=== PATIENT | female | born 1985 | race Caucasian/White ===

== ENCOUNTER 2017-07-20 17:01 | Inpatient (IN) | payer BC ==
[2017-07-20] MEDS ORDERED: Lidocaine 1% 50 ML MDV INJECT PRN (17:28)
[2017-07-20] MEDS ORDERED: Misoprostol 200 MCG Tab PO PRN (17:28)
[2017-07-20] MEDS ORDERED: Nalbuphine 10 MG/1 ML Vial IVPUSH PRN (17:28)
[2017-07-20] MEDS ORDERED: Terbutaline 1 MG/ML SDV SUBCUT PRN (17:28)
[2017-07-20] MEDS ORDERED: Methylergonovine 0.2 MG/1 ML Amp IM PRN (17:28)
[2017-07-20] MEDS ORDERED: Water For Irrigation,Sterile 1,000 ML Container IRR PRN (17:28)
[2017-07-20] MEDS ORDERED: Sodium Chloride 0.9% 2.5 ML Syringe FLUSH PRN (17:28)
[2017-07-20] MEDS ORDERED: Sodium Chloride 0.9% 10 ML Syringe FLUSH PRN (17:28)
[2017-07-20] MEDS ORDERED: Carboprost Tromethamine 250 MCG/1 ML Amp IM PRN (17:28)
[2017-07-20] MEDS ORDERED: Oxytocin/Lactated Ringers 30 UNIT/500 ML BAG IV SCH ×2 (17:30)
[2017-07-20] MEDS ORDERED: Misoprostol 25 MCG (1/4 of 100 MCG) Tab VAG SCH (17:30)
[2017-07-20] MEDS: Lactated Ringers 1,000 ML IV SCH (17:55)
[2017-07-20] MEDS: Misoprostol 25 MCG (1/4 of 100 MCG) Tab VAG PRN (22:11)
[2017-07-21] MEDS: Misoprostol 25 MCG (1/4 of 100 MCG) Tab VAG PRN ×2 (02:32→06:38)
[2017-07-21] MEDS: Butorphanol 1 MG/ML SDV IVPUSH PRN ×3 (11:03→14:38)
[2017-07-21 14:53] LABS: CHLORIDE,CL 104 mmol/L (98-110); SODIUM,NA 137 mmol/L (136-146)
[2017-07-21] MEDS ORDERED: Ropivacaine 0.2% 2 MG/ML 20 ML SDV ONE (16:48)
[2017-07-21] MEDS: Lactated Ringers 1,000 ML IV SCH ×5 (16:52→22:57)
--- NOTE | 2017-07-21 17:27 | PCM.PREANE ---
Preanesthetic Assessment - Anesthesia/Transfusion/Family Hx Anesthesia History: Prior Anesthesia Without Reaction Family History of Anesthesia Reaction: No Transfusion History: No Prior Transfusion(s) - Review of Systems Other: Reports: None - Physical Assessment Height: 5 ft 5 in Weight: 81.647 kg ASA Class: 2 Mental Status: Alert & Oriented x3 Airway Class: Mallampati = 1 Dentition: Reports: Normal Dentition Thyro-Mental Finger Breadths: 3 Mouth Opening Finger Breadths: 3 ROM/Head Extension: Full - Lab Values: Laboratory Last Values WBC 17.14 K/uL (4.0-11.0) H 07/21/17 14:15 RBC 4.32 M/uL (4.30-5.90) 07/21/17 14:15 Hgb 12.6 g/dL (12.0-16.0) 07/21/17 14:15 Hct 36.5 % (36.0-46.0) 07/21/17 14:15 MCV 84.5 fL (80.0-98.0) 07/21/17 14:15 MCH 29.2 pg (27.0-32.0) 07/21/17 14:15 MCHC 34.5 g/dL (31.0-37.0) 07/21/17 14:15 RDW Std Deviation 41.6 fl (28.0-62.0) 07/21/17 14:15 RDW Coeff of Yamilet 14 % (11.0-15.0) 07/21/17 14:15 Plt Count 157 K/uL (150-400) 07/21/17 14:15 MPV 9.50 fL (7.40-12.00) 07/21/17 14:15 Nucleated RBC % 0.0 /100WBC 07/21/17 14:15 Nucleated RBCs # 0 K/uL 07/21/17 14:15 Sodium 137 mmol/L (136-146) 07/21/17 14:15 Potassium 3.8 mmol/L (3.5-5.1) 07/21/17 14:15 Chloride 104 mmol/L (98-110) 07/21/17 14:15 Carbon Dioxide 22 mmol/L (21-31) 07/21/17 14:15 BUN 8 mg/dL (6.0-23.0) 07/21/17 14:15 Creatinine 0.8 mg/dL (0.6-1.5) 07/21/17 14:15 Est Cr Clr Drug Dosing 93.37 mL/min 07/21/17 14:15 Estimated GFR (MDRD) > 60.0 ml/min 07/21/17 14:15 Glucose 69 mg/dL (60-110) 07/21/17 14:15 Calcium 9.4 mg/dL (8.8-10.8) 07/21/17 14:15 Total Bilirubin 0.4 mg/dL (0.1-1.5) 07/21/17 14:15 AST 19 IU/L (5-40) 07/21/17 14:15 ALT 15 IU/L (8-54) 07/21/17 14:15 Alkaline Phosphatase 225 (40-150) H 07/21/17 14:15 Total Protein 6.8 g/dL (6.0-8.0) 07/21/17 14:15 Albumin 3.6 g/dL (3.5-5.0) 07/21/17 14:15 Globulin 3.2 g/dL (2.0-3.5) 07/21/17 14:15 Albumin/Globulin Ratio 1.1 (1.3-2.8) L 07/21/17 14:15 Blood Type AB POSITIVE 07/20/17 17:41 Antibody Screen NEGATIVE 07/20/17 17:41 - Allergies Allergies/Adverse Reactions: Allergies Allergy/AdvReac Type Severity Reaction Status Date / Time No Known Allergies Allergy Verified 07/20/17 17:27 - Blood Blood Available: Yes Product(s) Available: PRBC - Acknowledgements Anesthesia Type Planned: Epidural Pt an Appropriate Candidate for the Planned Anesthesia: Yes Alternatives and Risks of Anesthesia Discussed w Pt/Guardian: Yes Pt/Guardian Understands and Agrees with Anesthesia Plan: Yes PreAnesthesia Questionnaire - Past Surgical History HEENT Surgical History: Reports: Oral Surgery - SUBSTANCE USE Smoking Status *Q: Never Smoker Second Hand Smoke Exposure: No Recreational Drug Use History: No - CURRENT (IN HOUSE) MEDS Current Meds: Current Medications Butorphanol Tartrate (Stadol) 1 mg IVPUSH Q1H PRN PRN Reason: Pain Last Admin: 07/21/17 14:38 Dose: 1 mg Carboprost Tromethamine (Hemabate Ds) 250 mcg IM ASDIRECTED PRN PRN Reason: Post Hemorrhage Lactated Ringer's (Ringers, Lactated) 1,000 mls @ 150 mls/hr IV ASDIRECTED INGRIS Last Admin: 07/21/17 16:52 Dose: 999 mls/hr Oxytocin/Lactated Ringer's (Pitocin In Lr 30 Units/500 Ml) 30 unit in 500 mls @ 2 mls/hr IV TITRATE INGRIS; 2 MUNITS/MIN PRN Reason: Protocol Last Admin: 07/21/17 14:46 Dose: 2 munits/min, 2 mls/hr Lidocaine HCl (Xylocaine 1%) 50 ml INJECT .ONCE PRN PRN Reason: Laceration repair Methylergonovine Maleate (Methergine) 0.2 mg IM ASDIRECTED PRN PRN Reason: Post Hemorrhage Misoprostol (Cytotec) 200 mcg PO .ONCE PRN PRN Reason: Post Hemorrhage Misoprostol (Cytotec) 25 mcg VAG .ONCE INGRIS Last Admin: 07/20/17 17:55 Dose: 25 mcg Misoprostol (Cytotec) 25 mcg VAG Q4H PRN PRN Reason: Cervical Ripening Last Admin: 07/21/17 06:38 Dose: 25 mcg Nalbuphine HCl (Nubain) 10 mg IVPUSH Q1H PRN PRN Reason: Pain (severe 7-10) Sodium Chloride (Saline Flush) 10 ml FLUSH ASDIRECTED PRN PRN Reason: Keep Vein Open Sodium Chloride (Saline Flush) 2.5 ml FLUSH ASDIRECTED PRN PRN Reason: Keep Vein Open Sterile Water (Sterile Water For Irrigation) 1,000 ml IRR ASDIRECTED PRN PRN Reason: delivery Terbutaline Sulfate (Brethine) 0.25 mg SUBCUT ASDIRECTED PRN PRN Reason: Tacysystole Discontinued Medications Oxytocin/Lactated Ringer's (Pitocin In Lr 30 Units/500 Ml) 30 unit in 500 mls @ 250 mls/hr IV TITRATE INGRIS PRN Reason: 250 MUNITS/MIN Stop: 07/20/17 19:29 Ropivacaine/Fentanyl/NS (Fentanyl 2 Mcg-Ropiv 0.2%-Ns) Confirm Administered Dose 100 mls @ as directed .ROUTE .[facility] ONE Stop: 07/21/17 16:49 Ropivacaine (Naropin 0.2%) Confirm Administered Dose 20 ml .ROUTE .[facility] ONE Stop: 07/21/17 16:49
[2017-07-21] MEDS ORDERED: ePHEDrine 50 MG/ML SDV ONE (17:48)
[2017-07-21] MEDS ORDERED: Ropivacaine HCl/PF 100 ML ONE (23:49)
[2017-07-21] MEDS ORDERED: Bupivacaine 0.5% 10 ML SDV ONE (23:50)
[2017-07-22] MEDS ORDERED: Bupivacaine 0.5% 10 ML SDV ONE ×2 (03:14→11:45)
[2017-07-22] MEDS: Lactated Ringers 1,000 ML IV SCH ×4 (03:33→11:44)
[2017-07-22] MEDS ORDERED: Ropivacaine HCl/PF 100 ML ONE (03:47)
[2017-07-22] MEDS ORDERED: Phenylephrine/Normal Saline 100 MCG/ML 10 ML Syringe ONE (11:34)
[2017-07-22] MEDS ORDERED: ePHEDrine 50 MG/ML SDV ONE (11:34)
[2017-07-22] MEDS ORDERED: Oxytocin 10 Units/1 ML SDV ONE (11:36)
[2017-07-22] MEDS ORDERED: Ondansetron 4 MG/2 ML SDV ONE (11:37)
[2017-07-22] MEDS ORDERED: Citric Acid/Sodium Citrate Solution 30 ML Cup PO ONE (11:46)
[2017-07-22] MEDS ORDERED: ceFAZolin 1 GM Vial ONE (11:49)
[2017-07-22] MEDS ORDERED: Water For Injection, Sterile 20 ML ONE (11:50)
[2017-07-22] MEDS ORDERED: Azithromycin 500 MG in Sodium Chloride 0.9% 250 ML IV ONE (12:00)
[2017-07-22] MEDS ORDERED: ceFAZolin 2 GM in Premix Bag 1 BAG IV ONE (12:00)
[2017-07-22] MEDS ORDERED: Octyl 2-Cyanoacrylate 1 Tube ONE (12:38)
[2017-07-22] MEDS ORDERED: Morphine PF 10 MG/10 ML SDV ONE (12:39)
--- NOTE | 2017-07-22 12:58 | PCM.OPNOTE ---
- General Post-Op/Procedure Note Date of Surgery/Procedure: 07/22/17 Operative Procedure(s): primary low transverse . Findings: Normal pelvis, liveborn male 810 weight 2460 grams, shoulder cord, PAT Pre Op Diagnosis: 39 1/7 weeks IUGR Post-Op Diagnosis: Same Anesthesia Technique: Epidural Primary Surgeon: Ynes Fishman Anesthesia Provider: Arvind Espana Conditioner Tumbler: Jose Christianson Pathology: placenta to pathology Fluid Replacement, Intraop: 600 Output, Urine Amount: 150 EBL in mLs: 500 Complications: None Known Condition: Good Free Text/Narrative:: Intake & Output 07/21/17 07/22/17 07/22/17 22:59 06:59 14:59 Intake Total 3000 Balance 3000
[2017-07-22] MEDS ORDERED: Methylergonovine 0.2 MG/1 ML Amp IM PRN (12:59)
[2017-07-22] MEDS ORDERED: Bisacodyl 10 MG Supp RECTAL PRN (12:59)
[2017-07-22] MEDS ORDERED: diphenhydrAMINE 50 MG/ML SDV IVPUSH PRN (12:59)
[2017-07-22] MEDS ORDERED: Lanolin 100% Cream 7 GM Tube TOP PRN (12:59)
[2017-07-22] MEDS ORDERED: Ondansetron 4 MG/2 ML SDV IV PRN (12:59)
[2017-07-22] MEDS ORDERED: Lactated Ringers 1,000 ML IV SCH (13:00)
--- NOTE | 2017-07-22 13:04 | PCM.SN ---
- Free Text/Narrative Note: Patient had been discussed with Sam Alberto yesterday with epidural placement and effects. Now for per Dr. Fishman for failure of tolerance by baby to labor. epidural was used for dosing and had been providing great analgesia since placement/replacement during the early AM. Plan discussed and carried out.
[2017-07-22] MEDS ORDERED: Nalbuphine 10 MG/1 ML Vial IVPUSH PRN (13:05)
[2017-07-22] MEDS ORDERED: Naloxone 0.4 MG/ML Syringe IVPUSH PRN (13:05)
[2017-07-22] MEDS: Ketorolac 30 MG/ML SDV IVPUSH SCH ×2 (13:13→19:05)
--- NOTE | 2017-07-22 13:27 | PCM.POSTAN ---
POST ANESTHESIA ASSESSMENT - MENTAL STATUS Mental Status: Alert, Oriented - VITAL SIGNS Pulse Rate: 71 SaO2: 99 Resp Rate: 20 Blood Pressure: 108/69 Temperature: 36.2 F - RESPIRATORY Respiratory Status: Respiratory Rate WNL, Airway Patent, O2 Saturation Stable - CARDIOVASCULAR CV Status: Pulse Rate WNL, Blood Pressure Stable - GASTROINTESTINAL GI Status: No Symptoms - PAIN Pain Score: 0 - POST OP HYDRATION Hydration Status: Adequate & Stable - OBSERVATIONS Free Text/Narrative:: Pt comfortable and stable at end of PACU course. Will be discharged from PACU to OB under the care of Dr. Fishman.
--- NOTE | 2017-07-22 14:07 | OR ---
SURGEON: Ynes Fishman M.D. DATE OF PROCEDURE: 07/20/2017 PREOPERATIVE DIAGNOSIS: Intrauterine growth restriction, intolerance to labor. POSTOPERATIVE DIAGNOSIS: Intrauterine growth restriction, intolerance to labor. PROCEDURE: Cytotec and Pitocin induction of labor with primary low transverse section. ANESTHESIA: Epidural. ESTIMATED BLOOD LOSS: 500 mL. FLUIDS: 600 mL crystalloid. Urine output 150 mL. FINDINGS: Live-born male, score 8 and 10, weighing 2460 g. Normal-appearing placenta. There was no nuchal cord or shoulder cord was noted. The fetus was in the left occiput anterior position. COMPLICATIONS: None known. DISPOSITION: Stable to recovery. BRIEF HISTORY: This is a 31-year-old female. She is G1, P0. She was seen in the clinic at 38 weeks' gestation and was noted to be measuring significantly small. Ultrasound was obtained and compared to an ultrasound obtained 3 weeks previously which showed minimal growth with the abdominal circumference less than the 3rd percentile suggestive of IUGR. Therefore at 39 weeks, I recommended proceeding with induction of labor and Crao did agree with this plan. Due to unfavorable cervix with a Conley score initially of 1, she received multiple doses of Cytotec. With this she dilated to 1 cm, 50%. I was able to place a catheter through the cervix with the balloon at the internal and external os. This was very effective. She had spontaneous rupture of membranes during this time with expulsion of the catheter. Following this she was 3 cm dilated. She continued to have irregular contractions with some decelerations, therefore no further Cytotec was utilized and she was allowed to progress naturally over the following 4 hours. However contractions resolved. Therefore Pitocin was initiated. Intrauterine pressure catheter was placed and with the Pitocin she had normal heart tones up until it reached 8 milliunits per minute. There were short episodes where she had reached above 200 [place] units with contractions, but the majority of the time they were less than 200 and a significant amount of time less than 80 as the Pitocin had to be started and stopped multiple times due to decelerations. She had received an initial epidural with test dose which shortly resulted in complete numbness of her left leg as well as hypotension, therefore that catheter was removed, a higher catheter was placed. This did not result in significant pain control and therefore a 3rd catheter was placed again in the lower position and with this she had excellent analgesia. Her blood pressures were stable and heart tones were as anticipated except when contractions became adequate and then she had recurrent prolonged decelerations. She did not progress over a 6-hour time. She remained 5 cm, 90%, -2 station over 6-hour time. Although we were unable to produce adequate contractions during this time, I recommended proceeding to a delivery due to intolerance of labor with risks discussed including bleeding, infection, injury to bowel, bladder, blood vessels, ureter or other organs, risk of thromboembolic event, risk of anesthesia. Understanding all of these risks, she does desire to proceed. DESCRIPTION OF PROCEDURE: With the patient in left tilt position, under adequate epidural analgesia, the abdomen was prepped with chlorhexidine and draped in usual fashion for abdominal surgery. An appropriate time-out was held. SCDs were in place. A Walker catheter had been placed and she received 500 mg of azithromycin as well as 2 g of Ancef IV. After the documentation of adequate analgesia, a transverse curvilinear incision was made 2 cm cephalad from the pubic symphysis and carried through the subcutaneous tissue to the fascia which was scored transversely in the midline. The fascial incision was extended using curved [place] scissors and the fascia was elevated from the underlying rectus muscle and using sharp and blunt dissection. A finger was used to separate the rectus muscle and entered the peritoneal cavity and this incision was extended using blunt dissection. The Jose O retractor was placed into the abdominal cavity and there was excellent visualization. A bladder flap was developed over the lower uterine segment. A transverse curvilinear incision was made over the lower uterine segment with a scalpel. A finger was used to enter the amniotic cavity. Clear fluid was noted and the incision was extended bluntly. The head was delivered via the uterine incision without difficulty with subsequent delivery of the 's shoulders and body. The infant was bulb suctioned by nose and mouth. Cord was clamped x2 and cut and the infant was handed to Dr. Hui who was in attendance at delivery. The infant was a liveborn male, score 8 and 10 weighing 2460 g. Cord blood was collected for cord ABGs as well as routine cord blood sampling. Pitocin was initiated after delivery of the . The placenta was removed by manual extraction. The uterus was sav well. The uterine incision was closed with a running lock suture of 0 Polysorb after the endometrial cavity had been cleaned with a dry laparotomy tape. A 2nd imbricating layer was placed using 0 Polysorb. The tubes and ovaries were inspected. Appeared normal. A wet laparotomy tape was used to clean the pericolic gutters and posterior cul-de-sac and the uterine incision was again inspected. It appeared hemostatic. Therefore, the Jose O retractor was removed. A final inspection of the uterus incision revealed a midline area of moderate to small bleeding, therefore a [id number] suture was placed and the incision was again inspected. It was completely hemostatic. Therefore, the rectus muscle and peritoneum were loosely approximated in the midline using a running mattress suture. The posterior aspect of the fascia was carefully inspected. There were no areas of bleeding. The fascia was closed with a running lock suture of 0 Polysorb. Subcutaneous tissue was irrigated. Any areas of bleeding that were noted were cauterized. The skin was closed with a running subcuticular suture of 3-0 Polysorb followed by skin glue. Final sponge, needle, and instrument counts were reported as correct. There were no known complications. The infant was in nursery in good condition. Mother remains in recovery in good condition. JOHN / WANDA /[id number]
[2017-07-22] MEDS: Docusate Sodium 100 MG Cap PO SCH (20:57)
[2017-07-23] MEDS: Ketorolac 30 MG/ML SDV IVPUSH SCH ×3 (01:08→13:33)
--- NOTE | 2017-07-23 08:31 | PCM.PNPP ---
- General Info Date of Service: 07/23/17 Functional Status: Reports: Pain Controlled, Tolerating Diet, Ambulating - Review of Systems General: Reports: No Symptoms HEENT: Reports: No Symptoms Pulmonary: Reports: No Symptoms Cardiovascular: Reports: No Symptoms Gastrointestinal: Reports: No Symptoms Genitourinary: Reports: No Symptoms Musculoskeletal: Reports: No Symptoms Skin: Reports: No Symptoms Neurological: Reports: No Symptoms Psychiatric: Reports: No Symptoms - General Info Date of Service: 07/23/17 - Patient Data Vital Signs - Most Recent: Last Vital Signs Temp 37.1 C 07/23/17 05:00 Pulse 70 07/23/17 05:00 Resp 16 07/23/17 06:00 BP 98/60 07/23/17 05:00 Pulse Ox 95 07/23/17 06:00 Weight - Most Recent: 81.647 kg I&O - Last 24 Hours: Intake & Output 07/22/17 07/23/17 07/23/17 22:59 06:59 14:59 Intake Total 300 Output Total 275 1725 Balance 25 -1725 Lab Results - Last 24 Hours: Laboratory Results - last 24 hr 07/23/17 Range/Units 06:14 Hgb 8.7 L (12.0-16.0) g/dL Hct 26.5 L (36.0-46.0) % Med Orders - Current: Current Medications Bisacodyl (Dulcolax) 10 mg RECTAL .ONCE PRN PRN Reason: Constipation Diphenhydramine HCl (Benadryl) 25 mg IVPUSH Q6H PRN PRN Reason: Itching or Nausea Last Admin: 07/22/17 18:18 Dose: 25 mg Docusate Sodium (Colace) 100 mg PO BID [facility] Last Admin: 07/22/17 20:57 Dose: 100 mg Emollient Ointment (Lansinoh Hpa) 0 gm TOP ASDIRECTED PRN PRN Reason: Sore Nipples Lactated Ringer's (Ringers, Lactated) 1,000 mls @ 125 mls/hr IV ASDIRECTED INGRIS Last Admin: 07/22/17 17:02 Dose: 125 mls/hr Ibuprofen (Motrin) 800 mg PO Q8H PRN PRN Reason: mild pain or fever Ketorolac Tromethamine (Toradol) 30 mg IVPUSH Q6H [facility] Stop: 07/23/17 13:01 Last Admin: 07/23/17 06:33 Dose: 30 mg Methylergonovine Maleate (Methergine) 0.2 mg IM .ONCE PRN PRN Reason: Excessive Vaginal Bleeding Nalbuphine HCl (Nubain) 5 mg IVPUSH Q3H PRN PRN Reason: Pruritis Stop: 07/23/17 13:05 Last Admin: 07/22/17 20:57 Dose: 5 mg Naloxone HCl (Narcan) 0.1 mg IVPUSH ONETIME PRN PRN Reason: Respiratory Depression Stop: 07/23/17 13:05 Ondansetron HCl (Zofran) 4 mg IV Q4H PRN PRN Reason: Nausea/Vomiting Oxycodone/Acetaminophen (Percocet 325-5 Mg) 2 tab PO Q4H PRN PRN Reason: Pain (moderate 4-6) Discontinued Medications Bupivacaine HCl (Sensorcaine-Mpf 0.5%) Confirm Administered Dose 10 ml .ROUTE .[facility] ONE Stop: 07/21/17 23:51 Bupivacaine HCl (Sensorcaine-Mpf 0.5%) Confirm Administered Dose 20 ml .ROUTE .[facility] ONE Stop: 07/22/17 03:15 Bupivacaine HCl (Sensorcaine-Mpf 0.5%) Confirm Administered Dose 20 ml .ROUTE .[facility] ONE Stop: 07/22/17 11:46 Butorphanol Tartrate (Stadol) 1 mg IVPUSH Q1H PRN PRN Reason: Pain Last Admin: 07/21/17 14:38 Dose: 1 mg Carboprost Tromethamine (Hemabate Ds) 250 mcg IM ASDIRECTED PRN PRN Reason: Post Hemorrhage Cefazolin Sodium (Ancef) Confirm Administered Dose 2 gm .ROUTE .[facility] ONE Stop: 07/22/17 11:50 Citric Acid/Sodium Citrate (Bicitra Solution) 30 ml PO ONETIME ONE Stop: 07/22/17 11:47 Last Admin: 07/22/17 11:53 Dose: 30 ml Ephedrine Sulfate (Ephedrine Sulfate) Confirm Administered Dose 50 mg .ROUTE .[facility] ONE Stop: 07/21/17 17:49 Ephedrine Sulfate (Ephedrine Sulfate) Confirm Administered Dose 50 mg .ROUTE .[facility] ONE Stop: 07/22/17 11:35 Lactated Ringer's (Ringers, Lactated) 1,000 mls @ 150 mls/hr IV ASDIRECTED INGRIS Last Admin: 07/22/17 11:44 Dose: 150 mls/hr Oxytocin/Lactated Ringer's (Pitocin In Lr 30 Units/500 Ml) 30 unit in 500 mls @ 250 mls/hr IV TITRATE INGRIS PRN Reason: 250 MUNITS/MIN Stop: 07/20/17 19:29 Oxytocin/Lactated Ringer's (Pitocin In Lr 30 Units/500 Ml) 30 unit in 500 mls @ 2 mls/hr IV TITRATE INGRIS; 2 MUNITS/MIN PRN Reason: Protocol Last Titration: 07/22/17 10:09 Dose: 8 munits/min, 8 mls/hr Ropivacaine/Fentanyl/NS (Fentanyl 2 Mcg-Ropiv 0.2%-Ns) Confirm Administered Dose 100 mls @ as directed .ROUTE .[facility] ONE Stop: 07/21/17 16:49 Ropivacaine (Naropin 0.2%) Confirm Administered Dose 100 mls @ as directed .ROUTE .[facility] ONE Stop: 07/21/17 23:50 Ropivacaine (Naropin 0.2%) Confirm Administered Dose 100 mls @ as directed .ROUTE .[facility] ONE Stop: 07/22/17 03:48 Azithromycin 500 mg/ Sodium (Chloride) 250 mls @ 250 mls/hr IV ONETIME ONE Stop: 07/22/17 12:59 Last Admin: 07/22/17 11:53 Dose: 250 mls/hr Cefazolin Sodium/Dextrose 2 gm (/ Premix) 50 mls @ 100 mls/hr IV ONETIME ONE Stop: 07/22/17 12:29 Sterile Water (Sterile Water For Injection) Confirm Administered Dose 20 mls @ as directed .ROUTE .[facility] ONE Stop: 07/22/17 11:51 Lidocaine HCl (Xylocaine 1%) 50 ml INJECT .ONCE PRN PRN Reason: Laceration repair Methylergonovine Maleate (Methergine) 0.2 mg IM ASDIRECTED PRN PRN Reason: Post Hemorrhage Misoprostol (Cytotec) 200 mcg PO .ONCE PRN PRN Reason: Post Hemorrhage Misoprostol (Cytotec) 25 mcg VAG .ONCE [facility] Last Admin: 07/20/17 17:55 Dose: 25 mcg Misoprostol (Cytotec) 25 mcg VAG Q4H PRN PRN Reason: Cervical Ripening Last Admin: 07/21/17 06:38 Dose: 25 mcg Morphine Sulfate (Duramorph Pf) Confirm Administered Dose 10 mg .ROUTE .[facility] ONE Stop: 07/22/17 12:40 Nalbuphine HCl (Nubain) 10 mg IVPUSH Q1H PRN PRN Reason: Pain (severe 7-10) Octyl Cyanoacrylate (Dermabond Advance) Confirm Administered Dose 1 applic .ROUTE .[facility] ONE Stop: 07/22/17 12:39 Ondansetron HCl (Zofran) Confirm Administered Dose 4 mg .ROUTE .[facility] ONE Stop: 07/22/17 11:38 Oxytocin (Pitocin) Confirm Administered Dose 20 unit .ROUTE .[facility] ONE Stop: 07/22/17 11:37 Phenylephrine HCl (Phenylephrine In Ns 100 Mcg/Ml) Confirm Administered Dose 1 mg .ROUTE .[facility] ONE Stop: 07/22/17 11:35 Ropivacaine (Naropin 0.2%) Confirm Administered Dose 20 ml .ROUTE .[facility] ONE Stop: 07/21/17 16:49 Sodium Chloride (Saline Flush) 10 ml FLUSH ASDIRECTED PRN PRN Reason: Keep Vein Open Sodium Chloride (Saline Flush) 2.5 ml FLUSH ASDIRECTED PRN PRN Reason: Keep Vein Open Sterile Water (Sterile Water For Irrigation) 1,000 ml IRR ASDIRECTED PRN PRN Reason: delivery Terbutaline Sulfate (Brethine) 0.25 mg SUBCUT ASDIRECTED PRN PRN Reason: Tacysystole - Interaction Infant Disposition, : [place] in Room with Family Infant Interaction: Holding Infant Feeding: Breastfed ; Nursed Well Support Person: - Recovery Exam Fundal Tone: Firm Fundal Level: 1 Fingerbreadths Below Umbilicus Fundal Placement: Midline Lochia Amount: Small Lochia Color: Rubra/Red Perineum Description: Intact, Minimal Bruising/Swelling Episiotomy/Laceration: None Bladder Status: Indwelling Catheter in Place Urinary Elimination: Other (see below) Other Urinary Elimination, : Due to void - Exam General: Alert, Oriented HEENT: Pupils Equal Neck: Supple Lungs: Normal Respiratory Effort GI/Abdominal Exam: Soft, Non-Tender, No Organomegaly, No Distention, No Abnormal Bruit, No Mass, Pelvis Stable Extremities: Normal Inspection, Normal Range of Motion, Non-Tender, No Pedal Edema, Normal Capillary Refill Skin: Warm, Dry, Intact Neurological: No New Focal Deficit Psy/Mental Status: Alert, Normal Affect, Normal Mood - Problem List & Annotations (1) Delivery by section of full-term SNOMED Code(s): 630474480 Code(s): O82 - ENCOUNTER FOR DELIVERY WITHOUT INDICATION Status: Acute Current Visit: Yes (2) intolerance to labor, delivered, current hospitalization SNOMED Code(s): 278636960 Code(s): O77.9 - LABOR AND DELIVERY COMPLICATED BY STRESS, UNSPECIFIED Status: Acute Current Visit: Yes - Problem List Review Problem List Initiated/Reviewed/Updated: Yes - My Orders Last 24 Hours: My Active Orders 07/22/17 11:47 Verify Patient Consent Obtain [RC] ASDIRECTED 07/22/17 12:59 Patient Status [ADT] Routine Ambulate [RC] PER UNIT ROUTINE Antiembolic Devices [RC] PER UNIT ROUTINE Communication Order [RC] PER UNIT ROUTINE Communication Order [RC] PER UNIT ROUTINE Communication Order [RC] Per Unit Routine May Shower [RC] ASDIRECTED Notify Provider Intake and Out [RC] ASDIRECTED Notify Provider Vital Signs [RC] ASDIRECTED RT Incentive Spirometry [RC] Q2HWA Vital Signs [RC] PER UNIT ROUTINE Acetaminophen/oxyCODONE [Percocet 325-5 MG] 2 tab PO Q4H PRN Bisacodyl [Dulcolax] 10 mg RECTAL .ONCE PRN Ibuprofen [Motrin] 800 mg PO Q8H PRN Lanolin [Lansinoh HPA] See Dose Instructions TOP ASDIRECTED PRN Methylergonovine [Methergine] 0.2 mg IM .ONCE PRN Ondansetron [Zofran] 4 mg IV Q4H PRN diphenhydrAMINE [Benadryl] 25 mg IVPUSH Q6H PRN Abdominal Binder [OM.PC] Routine Assess Lochia [WOMSER] Per Unit Routine Assess Uterine Involution [WOMSER] Per Unit Routine Breast Pump [WOMSER] Per Unit Routine Peripheral IV Discontinue [OM.PC] Routine Sequential Compression Device [OM.PC] Per Unit Routine Resuscitation Status Routine 07/22/17 13:00 Ketorolac [Toradol] 30 mg IVPUSH Q6H Lactated Ringers [Ringers, Lactated] 1,000 ml IV ASDIRECTED 07/22/17 21:00 Docusate Sodium [Colace] 100 mg PO BID 07/22/17 Dinner Regular Diet [DIET] 07/23/17 Breakfast Regular Diet [DIET] - Assessment Assessment:: POD#1 after stable, minimal lochia. Pain is well controlled. Baby is doing well, well. - Plan Plan:: Stable after primary for intolerance to labor. Will continue postop care, anticipate home tomorrow
[2017-07-23] MEDS: Docusate Sodium 100 MG Cap PO SCH ×2 (08:53→20:12)
--- NOTE | 2017-07-23 09:26 | PCM48HPAN ---
Post Anesthesia Note - EVALUATION WITHIN 48HRS OF ANESTHETIC Vital Signs in Normal Range: Yes Patient Participated in Evaluation: Yes Respiratory Function Stable: Yes Airway Patent: Yes Cardiovascular Function Stable: Yes Hydration Status Stable: Yes Pain Control Satisfactory: Yes Nausea and Vomiting Control Satisfactory: Yes Mental Status Recovered: Yes
[2017-07-23] MEDS: Ibuprofen 800 MG Tab PO PRN (20:12)
[2017-07-23] MEDS: Acetaminophen/oxyCODONE 325-5 MG Tab PO PRN ×2 (20:13→23:39)
[2017-07-24] MEDS: Acetaminophen/oxyCODONE 325-5 MG Tab PO PRN (03:40)
[2017-07-24] MEDS: Ibuprofen 800 MG Tab PO PRN (03:40)
--- NOTE | 2017-07-24 08:28 | PCM.PNPP ---
- General Info Date of Service: 07/24/17 Functional Status: Reports: Pain Controlled, Tolerating Diet, Ambulating, Urinating - Review of Systems General: Denies: Fever Pulmonary: Denies: Shortness of Breath, Pleuritic Chest Pain, Cough Cardiovascular: Denies: Chest Pain, Palpitations, Dyspnea on Exertion Gastrointestinal: Denies: Abdominal Pain, Constipation Genitourinary: Denies: Dysuria Psychiatric: Reports: No Symptoms - General Info Date of Service: 07/24/17 - Patient Data Vital Signs - Most Recent: Last Vital Signs Temp 36.4 C 07/24/17 08:00 Pulse 64 07/24/17 08:00 Resp 18 07/24/17 08:00 BP 97/60 07/24/17 08:00 Pulse Ox 96 07/24/17 08:00 Weight - Most Recent: 81.647 kg Med Orders - Current: Current Medications Bisacodyl (Dulcolax) 10 mg RECTAL .ONCE PRN PRN Reason: Constipation Diphenhydramine HCl (Benadryl) 25 mg IVPUSH Q6H PRN PRN Reason: Itching or Nausea Last Admin: 07/22/17 18:18 Dose: 25 mg Docusate Sodium (Colace) 100 mg PO BID INGRIS Last Admin: 07/23/17 20:12 Dose: 100 mg Emollient Ointment (Lansinoh Hpa) 0 gm TOP ASDIRECTED PRN PRN Reason: Sore Nipples Lactated Ringer's (Ringers, Lactated) 1,000 mls @ 125 mls/hr IV ASDIRECTED [facility] Last Admin: 07/22/17 17:02 Dose: 125 mls/hr Ibuprofen (Motrin) 800 mg PO Q8H PRN PRN Reason: mild pain or fever Last Admin: 07/24/17 03:40 Dose: 800 mg Methylergonovine Maleate (Methergine) 0.2 mg IM .ONCE PRN PRN Reason: Excessive Vaginal Bleeding Ondansetron HCl (Zofran) 4 mg IV Q4H PRN PRN Reason: Nausea/Vomiting Oxycodone/Acetaminophen (Percocet 325-5 Mg) 2 tab PO Q4H PRN PRN Reason: Pain (moderate 4-6) Last Admin: 07/24/17 03:40 Dose: 1 tab Discontinued Medications Bupivacaine HCl (Sensorcaine-Mpf 0.5%) Confirm Administered Dose 10 ml .ROUTE .STK-MED ONE Stop: 07/21/17 23:51 Bupivacaine HCl (Sensorcaine-Mpf 0.5%) Confirm Administered Dose 20 ml .ROUTE .STK-MED ONE Stop: 07/22/17 03:15 Bupivacaine HCl (Sensorcaine-Mpf 0.5%) Confirm Administered Dose 20 ml .ROUTE .STK-MED ONE Stop: 07/22/17 11:46 Butorphanol Tartrate (Stadol) 1 mg IVPUSH Q1H PRN PRN Reason: Pain Last Admin: 07/21/17 14:38 Dose: 1 mg Carboprost Tromethamine (Hemabate Ds) 250 mcg IM ASDIRECTED PRN PRN Reason: Post Hemorrhage Cefazolin Sodium (Ancef) Confirm Administered Dose 2 gm .ROUTE .STK-MED ONE Stop: 07/22/17 11:50 Citric Acid/Sodium Citrate (Bicitra Solution) 30 ml PO ONETIME ONE Stop: 07/22/17 11:47 Last Admin: 07/22/17 11:53 Dose: 30 ml Ephedrine Sulfate (Ephedrine Sulfate) Confirm Administered Dose 50 mg .ROUTE .STK-MED ONE Stop: 07/21/17 17:49 Ephedrine Sulfate (Ephedrine Sulfate) Confirm Administered Dose 50 mg .ROUTE .STK-MED ONE Stop: 07/22/17 11:35 Lactated Ringer's (Ringers, Lactated) 1,000 mls @ 150 mls/hr IV ASDIRECTED INGRIS Last Admin: 07/22/17 11:44 Dose: 150 mls/hr Oxytocin/Lactated Ringer's (Pitocin In Lr 30 Units/500 Ml) 30 unit in 500 mls @ 250 mls/hr IV TITRATE INGRIS PRN Reason: 250 MUNITS/MIN Stop: 07/20/17 19:29 Oxytocin/Lactated Ringer's (Pitocin In Lr 30 Units/500 Ml) 30 unit in 500 mls @ 2 mls/hr IV TITRATE INGRIS; 2 MUNITS/MIN PRN Reason: Protocol Last Titration: 07/22/17 10:09 Dose: 8 munits/min, 8 mls/hr Ropivacaine/Fentanyl/NS (Fentanyl 2 Mcg-Ropiv 0.2%-Ns) Confirm Administered Dose 100 mls @ as directed .ROUTE .STK-MED ONE Stop: 07/21/17 16:49 Ropivacaine (Naropin 0.2%) Confirm Administered Dose 100 mls @ as directed .ROUTE .STK-MED ONE Stop: 07/21/17 23:50 Ropivacaine (Naropin 0.2%) Confirm Administered Dose 100 mls @ as directed .ROUTE .ST-MED ONE Stop: 07/22/17 03:48 Azithromycin 500 mg/ Sodium (Chloride) 250 mls @ 250 mls/hr IV ONETIME ONE Stop: 07/22/17 12:59 Last Admin: 07/22/17 11:53 Dose: 250 mls/hr Cefazolin Sodium/Dextrose 2 gm (/ Premix) 50 mls @ 100 mls/hr IV ONETIME ONE Stop: 07/22/17 12:29 Sterile Water (Sterile Water For Injection) Confirm Administered Dose 20 mls @ as directed .ROUTE .ST-MED ONE Stop: 07/22/17 11:51 Ketorolac Tromethamine (Toradol) 30 mg IVPUSH Q6H INGRIS Stop: 07/23/17 13:01 Last Admin: 07/23/17 13:33 Dose: 30 mg Lidocaine HCl (Xylocaine 1%) 50 ml INJECT .ONCE PRN PRN Reason: Laceration repair Methylergonovine Maleate (Methergine) 0.2 mg IM ASDIRECTED PRN PRN Reason: Post Hemorrhage Misoprostol (Cytotec) 200 mcg PO .ONCE PRN PRN Reason: Post Hemorrhage Misoprostol (Cytotec) 25 mcg VAG .ONCE INGRIS Last Admin: 07/20/17 17:55 Dose: 25 mcg Misoprostol (Cytotec) 25 mcg VAG Q4H PRN PRN Reason: Cervical Ripening Last Admin: 07/21/17 06:38 Dose: 25 mcg Morphine Sulfate (Duramorph Pf) Confirm Administered Dose 10 mg .ROUTE .STK-MED ONE Stop: 07/22/17 12:40 Nalbuphine HCl (Nubain) 10 mg IVPUSH Q1H PRN PRN Reason: Pain (severe 7-10) Nalbuphine HCl (Nubain) 5 mg IVPUSH Q3H PRN PRN Reason: Pruritis Stop: 07/23/17 13:05 Last Admin: 07/22/17 20:57 Dose: 5 mg Naloxone HCl (Narcan) 0.1 mg IVPUSH ONETIME PRN PRN Reason: Respiratory Depression Stop: 07/23/17 13:05 Octyl Cyanoacrylate (Dermabond Advance) Confirm Administered Dose 1 applic .ROUTE .STK-MED ONE Stop: 07/22/17 12:39 Ondansetron HCl (Zofran) Confirm Administered Dose 4 mg .ROUTE .STK-MED ONE Stop: 07/22/17 11:38 Oxytocin (Pitocin) Confirm Administered Dose 20 unit .ROUTE .STK-MED ONE Stop: 07/22/17 11:37 Phenylephrine HCl (Phenylephrine In Ns 100 Mcg/Ml) Confirm Administered Dose 1 mg .ROUTE .STK-MED ONE Stop: 07/22/17 11:35 Ropivacaine (Naropin 0.2%) Confirm Administered Dose 20 ml .ROUTE .STK-MED ONE Stop: 07/21/17 16:49 Sodium Chloride (Saline Flush) 10 ml FLUSH ASDIRECTED PRN PRN Reason: Keep Vein Open Sodium Chloride (Saline Flush) 2.5 ml FLUSH ASDIRECTED PRN PRN Reason: Keep Vein Open Sterile Water (Sterile Water For Irrigation) 1,000 ml IRR ASDIRECTED PRN PRN Reason: delivery Terbutaline Sulfate (Brethine) 0.25 mg SUBCUT ASDIRECTED PRN PRN Reason: Tacysystole - Interaction Disposition, : in Room with Family Interaction: Holding Infant Feeding: Breastfed Infant; Nursed Well Support Person: - Recovery Exam Fundal Tone: Firm Fundal Level: 2 Fingerbreadths Below Umbilicus Fundal Placement: Midline Lochia Amount: Scant Lochia Color: Rubra/Red Perineum Description: Intact, Minimal Bruising/Swelling Episiotomy/Laceration: None Bladder Status: Voiding Urinary Elimination: Voided Other Urinary Elimination, : Due to void - Exam General: Alert, Oriented Lungs: Clear to Auscultation, Normal Respiratory Effort Cardiovascular: Regular Rate, Regular Rhythm GI/Abdominal Exam: Normal Bowel Sounds, Soft, Non-Tender, No Organomegaly, No Distention, No Abnormal Bruit, No Mass, Pelvis Stable Extremities: Pedal Edema Psy/Mental Status: Alert, Normal Affect, Normal Mood - Problem List & Annotations (1) Delivery by section of full-term infant SNOMED Code(s): 834635942 Code(s): O82 - ENCOUNTER FOR DELIVERY WITHOUT INDICATION Status: Acute Current Visit: Yes - Problem List Review Problem List Initiated/Reviewed/Updated: Yes - Assessment Assessment:: POD#2 after stable, minimal lochia. Breast feeding well. Discharge home today. - Plan Plan:: Discharge home today. Nothing in the vagina for 6 weeks. Continue PNV while breast feeding. Rx for Percocet to use as needed for pain. No lifting more than 10lbs for 6 weeks. Instructed patient to call if she develops fever greater than 101 or bleeding through a large pad an hour. F/U with [facility] In 2 and 6 weeks.
[2017-07-24] MEDS: Docusate Sodium 100 MG Cap PO SCH ×2 (09:18→11:11)
[2017-07-24 10:09] VITALS: BP 97/60
== END 2017-07-24 13:05 | disposition home or self-care (01) | DRG 540 ==
LOC: MW.OBCHECK 17:01 → MW.OB 17:01 → MW.OBCHECK 17:27 → MW.OB 17:28 → OBSVTOIN 07-22 12:26 → MW.OB 07-22 14:00
PROVIDERS: ADMIT Obstetrics & Gynecology; ATTEND Obstetrics & Gynecology
PROC: 10D00Z1 Extraction of Products of Conception, Low, Open Approach (ICD-10-PCS; principal; 2017-07-22)
PROC: 3E0P7GC Introduction of Other Therapeutic Substance into Female Reproductive, Via Natural or Artificial Opening (ICD-10-PCS; 2017-07-22)
PROC: 3E033VJ Introduction of Other Hormone into Peripheral Vein, Percutaneous Approach (ICD-10-PCS; 2017-07-22)
DX: O36.5930 Maternal care for other known or suspected poor fetal growth, third trimester, not applicable or unspecified (principal); O76 Abnormality in fetal heart rate and rhythm complicating labor and delivery; Z3A.38 38 weeks gestation of pregnancy; Z37.0 Single live birth
CPT/HCPCS: 01967; 01968; 01996; 36415; 59025; 59200; 80053; 85014; 85018; 85027; 86850; 86900; 86901; 88307; A9270-GY; J0456; J0595; J0690; J1200; J1885; J2270; J2300; J2405; J2590; J7050; J7120

== ENCOUNTER 2020-01-10 16:16 | Inpatient (IN) | payer BC ==
[2020-01-10] MEDS ORDERED: Citric Acid/Sodium Citrate Solution 30 ML Cup PO ONE (17:22)
[2020-01-10] MEDS ORDERED: Sodium Chloride 0.9% 10 ML Syringe FLUSH PRN (17:22)
[2020-01-10] MEDS ORDERED: ceFAZolin 2 GM in Premix Bag 1 BAG IV ONE (17:22)
[2020-01-10] MEDS ORDERED: Sodium Chloride 0.9% 2.5 ML Syringe FLUSH PRN (17:22)
[2020-01-10] MEDS ORDERED: Sodium Chloride 0.9% 10 ML SDV IV PRN (17:22)
[2020-01-10] MEDS ORDERED: Oxytocin/0.9 % Sodium Chloride 30 UNIT/500 ML BAG IV SCH (17:30)
[2020-01-10] MEDS ORDERED: Lactated Ringers 1,000 ML IV SCH ×2 (17:30→21:30)
[2020-01-10] MEDS ORDERED: Morphine PF 10 MG/10 ML SDV ONE (18:07)
[2020-01-10] MEDS ORDERED: ceFAZolin 1 GM Vial ONE (18:07)
[2020-01-10] MEDS ORDERED: Sodium Chloride 0.9% 20 ML ONE (18:07)
[2020-01-10] MEDS ORDERED: Phenylephrine/Normal Saline 100 MCG/ML 10 ML Syringe ONE ×2 (18:08→20:48)
[2020-01-10] MEDS ORDERED: Ondansetron 4 MG/2 ML SDV ONE (18:12)
[2020-01-10] MEDS ORDERED: Ketorolac 30 MG/ML SDV ONE (18:12)
[2020-01-10] MEDS ORDERED: Oxytocin 10 Units/1 ML SDV ONE (18:12)
--- NOTE | 2020-01-10 18:15 | PCM.PREANE ---
Preanesthetic Assessment - Anesthesia/Transfusion/Family Hx Anesthesia History: Prior Anesthesia Without Reaction Family History of Anesthesia Reaction: No Transfusion History: No Prior Transfusion(s) - Physical Assessment NPO Status Date: 01/10/20 NPO Status Time: 08:00 Height: 1.65 m Weight: 84.368 kg ASA Class: 1E - Allergies Allergies/Adverse Reactions: Allergies Allergy/AdvReac Type Severity Reaction Status Date / Time No Known Allergies Allergy Verified 01/07/20 12:01 - Acknowledgements Anesthesia Type Planned: Spinal Pt an Appropriate Candidate for the Planned Anesthesia: Yes Alternatives and Risks of Anesthesia Discussed w Pt/Guardian: Yes Pt/Guardian Understands and Agrees with Anesthesia Plan: Yes PreAnesthesia Questionnaire [employer] History: Reports: - Past Surgical History HEENT Surgical History: Reports: Oral Surgery - SUBSTANCE USE Smoking Status *Q: Never Smoker Recreational Drug Use History: No - HOME MEDS Home Medications: Home Meds Calcium Carbonate [Tums] 1 tab.chew CHEW ASDIRECTED PRN 01/07/20 [History] Pnv No.95/Ferrous Fum/Folic AC [ Vitamin Tablet] 1 tab PO DAILY [History] - CURRENT (IN HOUSE) MEDS Current Meds: Current Medications Oxytocin/Sodium Chloride (Oxytocin 30 Unit/500 Ml-Ns) 30 unit in 500 mls @ 250 mls/hr IV TITRATE INGRIS Lactated Ringer's (Ringers, Lactated) 1,000 mls @ 500 mls/hr IV BOLUS INGRIS Sodium Chloride (Saline Flush) 10 ml FLUSH ASDIRECTED PRN PRN Reason: Keep Vein Open Sodium Chloride (Saline Flush) 2.5 ml FLUSH ASDIRECTED PRN PRN Reason: Keep Vein Open Sodium Chloride (Normal Saline) 10 ml IV ASDIRECTED PRN PRN Reason: IV Use Discontinued Medications Cefazolin Sodium (Ancef) Confirm Administered Dose 2 gm .ROUTE .STK-MED ONE Stop: 01/10/20 18:08 Citric Acid/Sodium Citrate (Bicitra Solution) 30 ml PO ONETIME ONE Stop: 01/10/20 17:23 Cefazolin Sodium/Dextrose 2 gm (/ Premix) 50 mls @ 100 mls/hr IV ONETIME ONE Stop: 01/10/20 17:51 Sodium Chloride (Normal Saline) Confirm Administered Dose 20 mls @ as directed .ROUTE .STK-MED ONE Stop: 01/10/20 18:08 Ketorolac Tromethamine (Toradol) Confirm Administered Dose 30 mg .ROUTE .STK- MED ONE Stop: 01/10/20 18:13 Morphine Sulfate (Duramorph Pf) Confirm Administered Dose 10 mg .ROUTE .STK-MED ONE Stop: 01/10/20 18:08 Ondansetron HCl (Zofran) Confirm Administered Dose 4 mg .ROUTE .STK-MED ONE Stop: 01/10/20 18:13 Oxytocin (Pitocin) Confirm Administered Dose 20 unit .ROUTE .STK-MED ONE Stop: 01/10/20 18:13 Phenylephrine HCl (Phenylephrine In Ns 100 Mcg/Ml) Confirm Administered Dose 1 mg .ROUTE .STK-MED ONE Stop: 01/10/20 18:09
[2020-01-10] MEDS ORDERED: Acetaminophen/oxyCODONE 325-5 MG Tab PO PRN ×2 (20:14→21:26)
[2020-01-10] MEDS ORDERED: fentaNYL 100 MCG/2 ML SDV IVPUSH PRN (20:14)
[2020-01-10] MEDS ORDERED: Octyl 2-Cyanoacrylate 1 Tube ONE (20:50)
[2020-01-10] MEDS: Ketorolac 30 MG/ML SDV IVPUSH SCH (20:55)
--- NOTE | 2020-01-10 21:25 | PCM.OPNOTE ---
- General Post-Op/Procedure Note Date of Surgery/Procedure: 01/10/20 Findings: repeat low transverse , excision of paratubal cysts. Liveborn male 8/9 weight 3410. Placenta, anterior, somewhat low Pre Op Diagnosis: 38 4/7 weeks intrauterine , labor, previous c- section. Post-Op Diagnosis: Same Anesthesia Technique: Spinal Primary Surgeon: Ynes Fishman Anesthesia Provider: Rodrigue Hendricks Truck Driver Instructor: Cheikh eHrnandez Pathology: placenta to pathology, paratubal cysts (2 right and 1 left) Fluid Replacement, Intraop: 2,600 EBL in mLs: 600 Complications: None Known Condition: Good
[2020-01-10] MEDS ORDERED: Oxytocin 10 Units/1 ML SDV IM PRN (21:26)
[2020-01-10] MEDS ORDERED: Methylergonovine 0.2 MG/1 ML Amp IM PRN (21:26)
[2020-01-10] MEDS ORDERED: Ondansetron 4 MG/2 ML SDV IVPUSH PRN (21:26)
[2020-01-10] MEDS ORDERED: Lanolin 100% Cream 7 GM Tube TOP PRN (21:26)
[2020-01-10] MEDS ORDERED: Bisacodyl 10 MG Supp RECTAL PRN (21:26)
[2020-01-10] MEDS ORDERED: diphenhydrAMINE 50 MG/ML SDV IVPUSH PRN (21:26)
[2020-01-10] MEDS ORDERED: Misoprostol 200 MCG Tab RECTAL PRN (21:26)
[2020-01-10] MEDS ORDERED: Tranexamic Acid 1,000 MG in Sodium Chloride 0.9% 100 ML IV PRN (21:26)
--- NOTE | 2020-01-10 21:45 | PCM.POSTAN ---
POST ANESTHESIA ASSESSMENT - MENTAL STATUS Mental Status: Alert - RESPIRATORY Respiratory Status: Respiratory Rate WNL - CARDIOVASCULAR CV Status: Pulse Rate WNL - GASTROINTESTINAL GI Status: No Symptoms - POST OP HYDRATION Hydration Status: Adequate & Stable
[2020-01-10] MEDS: Nalbuphine 10 MG/1 ML Vial IVPUSH PRN (22:03)
--- NOTE | 2020-01-10 22:11 | OR ---
SURGEON: Ynes Fishman M.D. DATE OF PROCEDURE: 01/10/2020 PREOPERATIVE DIAGNOSES: 38-3/7-week intrauterine , previous delivery with labor. POSTOPERATIVE DIAGNOSES: 38-3/7-week intrauterine , previous delivery with labor, and paratubal cysts. PROCEDURE: Repeat low transverse section, excision of bilateral paratubal cysts. PRIMARY SURGEON: Ynes Fishman M.D. ANESTHESIA: Epidural. ESTIMATED BLOOD LOSS: Less than 600 mL. FLUIDS: 2600 mL crystalloid. FINDINGS: Liveborn male. scores 8 and 9. Weighing 3410 g. Normal-appearing uterus, tubes, and ovaries with a large 2 cm or 3 cm paratubal cyst on the right and a 1 cm paratubal cyst on the left, which were excised. The placenta was low and anterior. COMPLICATIONS: None known. DISPOSITION: Stable to recovery. BRIEF HISTORY: This is a 34-year-old female. She is G2, P1-0-0-1. She presents at 38-3/7 weeks' gestation with regular contractions, uncomfortable, with low back pain, pelvic pressure, nausea. She is scheduled in 4 days for a repeat delivery. Due to regular contractions every 5 minutes with pelvic pressure and pain, decision was made to proceed with a section at this time with risks discussed including bleeding, infection, injury to bowel, bladder, blood vessels, or other organs, risk of thromboembolic event, and risk of anesthesia. Understanding all these risks, she does desire to proceed. DESCRIPTION OF PROCEDURE: With the patient in left tilt position, under adequate spinal analgesia, the abdomen was prepped with chlorhexidine and draped in usual fashion for abdominal surgery. SCDs were in place, Walker catheter had been placed, and she received 2 g of Ancef IV. After documentation of adequate analgesia, the prior cicatrix was excised with a scalpel, and a transverse curvilinear incision was made through the subcutaneous tissue of the fascia, which was scored transversely in the midline. The fascial incision was extended laterally using curved Zaragoza scissors. The fascia was elevated from the underlying rectus muscle using sharp and blunt dissection. The rectus muscles were sharply in the midline. A finger was used to enter the peritoneal cavity. There were no adhesions anteriorly. Therefore, the incision was extended cephalad and caudad using sharp and blunt dissection. The Jose O retractor was placed. The visceroperitoneum over the lower uterine segment was incised to develop an adequate bladder flap. A transverse curvilinear incision was made over the lower uterine segment. A note was made that this incision was immediately at the lower aspect of the placenta and a finger was used to enter the amniotic cavity. Clear fluid was noted. The head was elevated via the uterine incision with fundal pressure. The infant was delivered and bulb suctioned by nose and mouth. The cord was clamped x2 and cut and the was handed to the nurse in attendance at delivery as well as Jovana Tatum, pediatric nurse practitioner. The infant was a liveborn male, scores 8 and 9, weighing 3410 g. Cord blood was collected for cord ABGs as well as routine cord blood sampling. By the time that the cord blood was collected, the placenta had delivered spontaneously. The uterus was cleaned with a wet laparotomy tape. The cervix was opened with a ring forceps. Pitocin had been started after delivery of the and the uterus was firm. The uterine incision was closed with a running lock suture of 0 Polysorb followed by an imbricating layer of 0 Polysorb. Three [id number] sutures were placed for complete hemostasis. The paracolic gutters and cul-de-sac were cleaned with a laparotomy tape. Tubes and ovaries were inspected. The ovaries appeared normal. There were large paratubal cysts on the distal aspect of the right tube. I did request consent from the patient to remove the cyst and she concurred and agreed to removal of the paratubal cyst. The peritoneum over the cyst was incised. The cysts were excised and the base was hemostatic. Two large cysts were on the right tube and there was a small 1 cm pedunculated cyst on the left tube that was also removed and these were all sent to Pathology as one specimen. The uterine incision was again inspected and was hemostatic. The tubes were inspected. They were hemostatic. Therefore, the Jose O retractor was removed. The rectus muscle and peritoneum were loosely approximated in midline using a running mattress suture of 0 Polysorb. The posterior aspect of the fascia was inspected and was hemostatic. The fascial incision was closed with a running suture of 0 Polysorb. The subcutaneous tissue was irrigated and cleaned with a dry laparotomy tape and the any areas of bleeding noticed were cauterized with the subcutaneous tissue being completely hemostatic. The skin was closed with a subcuticular suture of 3-0 Monocryl with Dermabond. Final sponge, needle, and instrument counts were reported as correct. There were no known complications. The patient was transferred to recovery in good condition. JOHN MUÑOZ /[id number]
[2020-01-11] MEDS: Nalbuphine 10 MG/1 ML Vial IVPUSH PRN ×4 (01:56→14:33)
[2020-01-11] MEDS: Ketorolac 30 MG/ML SDV IVPUSH SCH ×4 (03:22→21:21)
[2020-01-11] MEDS: Docusate Sodium 100 MG Cap PO SCH ×2 (09:36→21:21)
--- NOTE | 2020-01-11 10:00 | PCM.PNPP ---
- General Info Date of Service: 01/11/20 Functional Status: Reports: Pain Controlled, Tolerating Diet, Ambulating, Urinating - Review of Systems General: Reports: No Symptoms HEENT: Reports: No Symptoms Pulmonary: Reports: No Symptoms Cardiovascular: Reports: No Symptoms Gastrointestinal: Reports: No Symptoms Genitourinary: Reports: No Symptoms Musculoskeletal: Reports: No Symptoms Skin: Reports: No Symptoms Neurological: Reports: No Symptoms Psychiatric: Reports: No Symptoms - Patient Data Vital Signs - Most Recent: Last Vital Signs Temp 36.1 C 01/11/20 08:00 Pulse 79 01/11/20 09:00 Resp 16 01/11/20 09:00 BP 94/53 L 01/11/20 08:00 Pulse Ox 100 01/11/20 09:00 Weight - Most Recent: 84.368 kg I&O - Last 24 Hours: Intake & Output 01/10/20 01/11/20 01/11/20 22:59 06:59 14:59 Intake Total 2600 Output Total 850 2495 750 Balance 1750 -2475 -750 Lab Results - Last 24 Hours: Laboratory Results - last 24 hr 01/10/20 01/10/20 01/10/20 Range/Units 17:42 17:42 20:28 WBC 14.74 H (4.0-11.0) K/uL RBC 3.96 L (4.30-5.90) M/uL Hgb 10.8 L (12.0-16.0) g/dL Hct 32.3 L (36.0-46.0) % MCV 81.6 (80.0-98.0) fL MCH 27.3 (27.0-32.0) pg MCHC 33.4 (31.0-37.0) g/dL RDW Std Deviation 38.7 (28.0-62.0) fl RDW Coeff of Yamilet 13 (11.0-15.0) % Plt Count 207 (150-400) K/uL MPV 9.60 (7.40-12.00) fL Nucleated RBC % 0.0 /100WBC Nucleated RBCs # 0 K/uL Cord ABG Base Excess (-10--2) Cord VBG pH 7.257 (7.25-7.45) Cord VBG Base Excess -4 (-10--2) Blood Type AB POSITIVE Antibody Screen NEGATIVE 01/11/20 Range/Units 06:05 WBC (4.0-11.0) K/uL RBC (4.30-5.90) M/uL Hgb 9.3 L (12.0-16.0) g/dL Hct 28.1 L (36.0-46.0) % MCV (80.0-98.0) fL MCH (27.0-32.0) pg MCHC (31.0-37.0) g/dL RDW Std Deviation (28.0-62.0) fl RDW Coeff of Yamilet (11.0-15.0) % Plt Count (150-400) K/uL MPV (7.40-12.00) fL Nucleated RBC % /100WBC Nucleated RBCs # K/uL Cord ABG Base Excess (-10--2) Cord VBG pH (7.25-7.45) Cord VBG Base Excess (-10--2) Blood Type Antibody Screen Med Orders - Current: Current Medications Bisacodyl (Dulcolax) 10 mg RECTAL ONETIME PRN PRN Reason: Constipation Diphenhydramine HCl (Benadryl) 25 mg IVPUSH Q6H PRN PRN Reason: Itching or Nausea Last Admin: 01/11/20 01:02 Dose: 25 mg Docusate Sodium (Colace) 100 mg PO BID [facility] Last Admin: 01/11/20 09:36 Dose: 100 mg Emollient Ointment (Lansinoh Hpa) 0 gm TOP ASDIRECTED PRN PRN Reason: Sore Nipples Last Admin: 01/11/20 09:46 Dose: 1 applic Fentanyl (Sublimaze) 50 mcg IVPUSH Q5M PRN PRN Reason: Pain (severe 7-10) Stop: 01/11/20 20:14 Oxytocin/Sodium Chloride (Oxytocin 30 Unit/500 Ml-Ns) 30 unit in 500 mls @ 250 mls/hr IV TITRATE [facility] Lactated Ringer's (Ringers, Lactated) 1,000 mls @ 500 mls/hr IV BOLUS [facility] Last Admin: 01/10/20 19:40 Dose: 999 mls/hr Lactated Ringer's (Ringers, Lactated) 1,000 mls @ 125 mls/hr IV ASDIRECTED [facility] Tranexamic Acid 1,000 mg/ (Sodium Chloride) 110 mls @ 660 mls/hr IV ONETIME PRN PRN Reason: Bleeding Ibuprofen (Motrin) 800 mg PO Q8H PRN PRN Reason: mild pain or fever Ketorolac Tromethamine (Toradol) 30 mg IVPUSH Q6H [facility] Stop: 01/11/20 21:01 Last Admin: 01/11/20 09:36 Dose: 30 mg Methylergonovine Maleate (Methergine) 0.2 mg IM ONETIME PRN PRN Reason: Excessive Vaginal Bleeding Misoprostol (Cytotec) 1,000 mcg RECTAL ONETIME PRN PRN Reason: excessive bleeding Nalbuphine HCl (Nubain) 2.5 mg IVPUSH Q3H PRN PRN Reason: Pruritis Stop: 01/11/20 20:14 Last Admin: 01/11/20 08:01 Dose: 2.5 mg Ondansetron HCl (Zofran) 4 mg IVPUSH Q4H PRN PRN Reason: Nausea/Vomiting Oxycodone/Acetaminophen (Percocet 325-5 Mg) 1 tab PO ONETIME PRN PRN Reason: Pain (moderate 4-6) Oxycodone/Acetaminophen (Percocet 325-5 Mg) 1 tab PO Q4H PRN PRN Reason: Pain (moderate 4-6) Oxycodone/Acetaminophen (Percocet 325-5 Mg) 2 tab PO Q4H PRN PRN Reason: Pain (moderate 4-6) Oxytocin (Pitocin) 10 unit IM ASDIRECTED PRN PRN Reason: Excessive Vaginal Bleeding Sodium Chloride (Saline Flush) 10 ml FLUSH ASDIRECTED PRN PRN Reason: Keep Vein Open Sodium Chloride (Saline Flush) 2.5 ml FLUSH ASDIRECTED PRN PRN Reason: Keep Vein Open Sodium Chloride (Normal Saline) 10 ml IV ASDIRECTED PRN PRN Reason: IV Use Discontinued Medications Cefazolin Sodium (Ancef) Confirm Administered Dose 2 gm .ROUTE .STK-MED ONE Stop: 01/10/20 18:08 Citric Acid/Sodium Citrate (Bicitra Solution) 30 ml PO ONETIME ONE Stop: 01/10/20 17:23 Last Admin: 01/10/20 19:51 Dose: 30 ml Cefazolin Sodium/Dextrose 2 gm (/ Premix) 50 mls @ 100 mls/hr IV ONETIME ONE Stop: 01/10/20 17:51 Sodium Chloride (Normal Saline) Confirm Administered Dose 20 mls @ as directed .ROUTE .STK-MED ONE Stop: 01/10/20 18:08 Ketorolac Tromethamine (Toradol) Confirm Administered Dose 30 mg .ROUTE .STK- MED ONE Stop: 01/10/20 18:13 Morphine Sulfate (Duramorph Pf) Confirm Administered Dose 10 mg .ROUTE .STK-MED ONE Stop: 01/10/20 18:08 Octyl Cyanoacrylate (Dermabond Advance) Confirm Administered Dose 1 applic .ROUTE .STK-MED ONE Stop: 01/10/20 20:51 Ondansetron HCl (Zofran) Confirm Administered Dose 4 mg .ROUTE .STK-MED ONE Stop: 01/10/20 18:13 Oxytocin (Pitocin) Confirm Administered Dose 20 unit .ROUTE .STK-MED ONE Stop: 01/10/20 18:13 Phenylephrine HCl (Phenylephrine In Ns 100 Mcg/Ml) Confirm Administered Dose 1 mg .ROUTE .STK-MED ONE Stop: 01/10/20 18:09 Phenylephrine HCl (Phenylephrine In Ns 100 Mcg/Ml) Confirm Administered Dose 2 mg .ROUTE .STK-MED ONE Stop: 01/10/20 20:49 - Infant Interaction Disposition, : in Room with Family Infant Interaction: Holding Infant Infant Feeding: Breastfed Infant; Nursed Well Support Person: - Recovery Exam Fundal Tone: Firm Fundal Level: At Umbilicus Fundal Placement: Midline Lochia Amount: Scant Lochia Color: Rubra/Red Perineum Description: Intact, Minimal Bruising/Swelling Bladder Status: Indwelling Catheter in Place Urinary Elimination: Indwelling Catheter - Exam General: Alert, Oriented HEENT: Pupils Equal Neck: Supple Lungs: Clear to Auscultation, Normal Respiratory Effort Cardiovascular: Regular Rate, Regular Rhythm GI/Abdominal Exam: Normal Bowel Sounds, Soft, Non-Tender, No Organomegaly, No Distention Extremities: Normal Inspection, Non-Tender, No Pedal Edema Skin: Warm, Dry, Intact Wound/Incisions: Dressing Dry and Intact Neurological: No New Focal Deficit Psy/Mental Status: Alert, Normal Affect, Normal Mood - Problem List & Annotations (1) Delivery by section of full-term SNOMED Code(s): 763162495, [id number] Code(s): O82 - ENCOUNTER FOR DELIVERY WITHOUT INDICATION Status: Acute Current Visit: No - Problem List Review Problem List Initiated/Reviewed/Updated: Yes - My Orders Last 24 Hours: My Active Orders 01/10/20 16:42 Patient Status [ADT] Routine Up ad Oxana [RC] ASDIRECTED Resuscitation Status Routine 01/10/20 17:22 Patient Status [ADT] Routine Notify Provider Vital Signs [RC] PRN Procedure Site Prep Instruct [RC] ASDIRECTED Up ad Oxana [RC] ASDIRECTED Verify Patient Consent Obtain [RC] ASDIRECTED Sodium Chloride 0.9% [Normal Saline] 10 ml IV ASDIRECTED PRN Sodium Chloride 0.9% [Saline Flush] 10 ml FLUSH ASDIRECTED PRN Sodium Chloride 0.9% [Saline Flush] 2.5 ml FLUSH ASDIRECTED PRN Peripheral IV Insertion Adult [OM.PC] Routine Schedule Procedure [COMM] Per Unit Routine 01/10/20 17:30 Lactated Ringers [Ringers, Lactated] 1,000 ml IV BOLUS Oxytocin/0.9 % Sodium Chloride [Oxytocin 30 Unit/500 ML-NS] 30 unit in 500 ml IV TITRATE 01/10/20 17:42 RPR (SYPHILIS SERO) W/ RFLX [REF] Stat 01/10/20 21:00 Ketorolac [Toradol] 30 mg IVPUSH Q6H 01/10/20 21:26 Ambulate [RC] PER UNIT ROUTINE Communication Order [RC] PER UNIT ROUTINE Communication Order [RC] Per Unit Routine May Shower [RC] ASDIRECTED RT Incentive Spirometry [RC] Q2HWA Acetaminophen/oxyCODONE [Percocet 325-5 MG] 1 tab PO Q4H PRN Acetaminophen/oxyCODONE [Percocet 325-5 MG] 2 tab PO Q4H PRN Lanolin [Lansinoh HPA] See Dose Instructions TOP ASDIRECTED PRN Methylergonovine [Methergine] 0.2 mg IM ONETIME PRN Ondansetron [Zofran] 4 mg IVPUSH Q4H PRN Oxytocin [Pitocin] 10 unit IM ASDIRECTED PRN Tranexamic Acid [Cyklokapron] 1,000 mg Sodium Chloride 0.9% [Normal Saline] 100 ml IV ONETIME bisacodyL [Dulcolax] 10 mg RECTAL ONETIME PRN diphenhydrAMINE [Benadryl] 25 mg IVPUSH Q6H PRN miSOPROStoL [Cytotec] 1,000 mcg RECTAL ONETIME PRN Abdominal Binder [OM.PC] Urgent Assess Lochia [WOMSER] Per Unit Routine Assess Uterine Involution [WOMSER] Per Unit Routine Breast Pump [WOMSER] Per Unit Routine Peripheral IV Discontinue [OM.PC] Routine Sequential Compression Device [OM.PC] Per Unit Routine 01/10/20 21:27 Antiembolic Devices [RC] PER UNIT ROUTINE Notify Provider Intake and Out [RC] ASDIRECTED Notify Provider Vital Signs [RC] ASDIRECTED 01/10/20 21:30 Lactated Ringers [Ringers, Lactated] 1,000 ml IV ASDIRECTED 01/11/20 09:00 Docusate Sodium [Colace] 100 mg PO BID 01/11/20 Breakfast Regular Diet [DIET] 01/12/20 03:00 Ibuprofen [Motrin] 800 mg PO Q8H PRN - Assessment Assessment:: POD#1 after repeat low transverse , onset of labor. Stable, pain well controlled. - Plan Plan:: Encourage ambulation, continue postop care. Start oral pain medication this evening.
--- NOTE | 2020-01-11 10:47 | PCM48HPAN ---
Post Anesthesia Note - EVALUATION WITHIN 48HRS OF ANESTHETIC Vital Signs in Normal Range: Yes Patient Participated in Evaluation: Yes Respiratory Function Stable: Yes Airway Patent: Yes Cardiovascular Function Stable: Yes Hydration Status Stable: Yes Pain Control Satisfactory: Yes Nausea and Vomiting Control Satisfactory: Yes Mental Status Recovered: Yes Vital Signs: Last Vital Signs Temp 36.1 C 01/11/20 08:00 Pulse 66 01/11/20 10:00 Resp 14 01/11/20 10:00 BP 94/53 L 01/11/20 08:00 Pulse Ox 97 01/11/20 10:00 - COMMENTS/OBSERVATIONS Free Text/Narrative:: Doing well. Comfortable. No problems noted.
[2020-01-12] MEDS: Ibuprofen 800 MG Tab PO PRN ×2 (04:20→12:02)
[2020-01-12] MEDS: Acetaminophen/oxyCODONE 325-5 MG Tab PO PRN ×2 (08:08→12:02)
[2020-01-12] MEDS: Docusate Sodium 100 MG Cap PO SCH (08:08)
--- NOTE | 2020-01-12 08:46 | PCM.PNPP ---
- General Info Date of Service: 01/12/20 Functional Status: Reports: Pain Controlled, Tolerating Diet, Ambulating, Urinating - Review of Systems General: Reports: No Symptoms HEENT: Reports: No Symptoms Pulmonary: Reports: No Symptoms Cardiovascular: Reports: No Symptoms Gastrointestinal: Reports: No Symptoms Genitourinary: Reports: No Symptoms Musculoskeletal: Reports: No Symptoms Skin: Reports: No Symptoms Neurological: Reports: No Symptoms Psychiatric: Reports: No Symptoms - Patient Data Vital Signs - Most Recent: Last Vital Signs Temp 36.3 C 01/12/20 04:00 Pulse 72 01/12/20 04:00 Resp 16 01/12/20 04:00 BP 92/52 L 01/12/20 04:00 Pulse Ox 95 01/12/20 04:00 Weight - Most Recent: 84.368 kg I&O - Last 24 Hours: Intake & Output 01/11/20 01/12/20 01/12/20 22:59 06:59 14:59 Intake Total 550 Balance 550 Med Orders - Current: Current Medications Bisacodyl (Dulcolax) 10 mg RECTAL ONETIME PRN PRN Reason: Constipation Diphenhydramine HCl (Benadryl) 25 mg IVPUSH Q6H PRN PRN Reason: Itching or Nausea Last Admin: 01/11/20 01:02 Dose: 25 mg Docusate Sodium (Colace) 100 mg PO BID [facility] Last Admin: 01/12/20 08:08 Dose: 100 mg Emollient Ointment (Lansinoh Hpa) 0 gm TOP ASDIRECTED PRN PRN Reason: Sore Nipples Last Admin: 01/11/20 09:46 Dose: 1 applic Oxytocin/Sodium Chloride (Oxytocin 30 Unit/500 Ml-Ns) 30 unit in 500 mls @ 250 mls/hr IV TITRATE [facility] Lactated Ringer's (Ringers, Lactated) 1,000 mls @ 500 mls/hr IV BOLUS [facility] Last Admin: 01/10/20 19:40 Dose: 999 mls/hr Lactated Ringer's (Ringers, Lactated) 1,000 mls @ 125 mls/hr IV ASDIRECTED [facility] Tranexamic Acid 1,000 mg/ (Sodium Chloride) 110 mls @ 660 mls/hr IV ONETIME PRN PRN Reason: Bleeding Ibuprofen (Motrin) 800 mg PO Q8H PRN PRN Reason: mild pain or fever Last Admin: 01/12/20 04:20 Dose: 800 mg Methylergonovine Maleate (Methergine) 0.2 mg IM ONETIME PRN PRN Reason: Excessive Vaginal Bleeding Misoprostol (Cytotec) 1,000 mcg RECTAL ONETIME PRN PRN Reason: excessive bleeding Ondansetron HCl (Zofran) 4 mg IVPUSH Q4H PRN PRN Reason: Nausea/Vomiting Oxycodone/Acetaminophen (Percocet 325-5 Mg) 1 tab PO ONETIME PRN PRN Reason: Pain (moderate 4-6) Last Admin: 01/12/20 01:58 Dose: 1 tab Oxycodone/Acetaminophen (Percocet 325-5 Mg) 1 tab PO Q4H PRN PRN Reason: Pain (moderate 4-6) Last Admin: 01/12/20 08:08 Dose: 1 tab Oxycodone/Acetaminophen (Percocet 325-5 Mg) 2 tab PO Q4H PRN PRN Reason: Pain (moderate 4-6) Oxytocin (Pitocin) 10 unit IM ASDIRECTED PRN PRN Reason: Excessive Vaginal Bleeding Sodium Chloride (Saline Flush) 10 ml FLUSH ASDIRECTED PRN PRN Reason: Keep Vein Open Sodium Chloride (Saline Flush) 2.5 ml FLUSH ASDIRECTED PRN PRN Reason: Keep Vein Open Sodium Chloride (Normal Saline) 10 ml IV ASDIRECTED PRN PRN Reason: IV Use Discontinued Medications Cefazolin Sodium (Ancef) Confirm Administered Dose 2 gm .ROUTE .STK-MED ONE Stop: 01/10/20 18:08 Citric Acid/Sodium Citrate (Bicitra Solution) 30 ml PO ONETIME ONE Stop: 01/10/20 17:23 Last Admin: 01/10/20 19:51 Dose: 30 ml Fentanyl (Sublimaze) 50 mcg IVPUSH Q5M PRN PRN Reason: Pain (severe 7-10) Stop: 01/11/20 20:14 Cefazolin Sodium/Dextrose 2 gm (/ Premix) 50 mls @ 100 mls/hr IV ONETIME ONE Stop: 01/10/20 17:51 Sodium Chloride (Normal Saline) Confirm Administered Dose 20 mls @ as directed .ROUTE .STK-MED ONE Stop: 01/10/20 18:08 Ketorolac Tromethamine (Toradol) Confirm Administered Dose 30 mg .ROUTE .STK- MED ONE Stop: 01/10/20 18:13 Ketorolac Tromethamine (Toradol) 30 mg IVPUSH Q6H [facility] Stop: 01/11/20 21:01 Last Admin: 01/11/20 21:21 Dose: 30 mg Morphine Sulfate (Duramorph Pf) Confirm Administered Dose 10 mg .ROUTE .STK-MED ONE Stop: 01/10/20 18:08 Nalbuphine HCl (Nubain) 2.5 mg IVPUSH Q3H PRN PRN Reason: Pruritis Stop: 01/11/20 20:14 Last Admin: 01/11/20 14:33 Dose: 2.5 mg Octyl Cyanoacrylate (Dermabond Advance) Confirm Administered Dose 1 applic .ROUTE .STK-MED ONE Stop: 01/10/20 20:51 Ondansetron HCl (Zofran) Confirm Administered Dose 4 mg .ROUTE .STK-MED ONE Stop: 01/10/20 18:13 Oxytocin (Pitocin) Confirm Administered Dose 20 unit .ROUTE .STK-MED ONE Stop: 01/10/20 18:13 Phenylephrine HCl (Phenylephrine In Ns 100 Mcg/Ml) Confirm Administered Dose 1 mg .ROUTE .STK-MED ONE Stop: 01/10/20 18:09 Phenylephrine HCl (Phenylephrine In Ns 100 Mcg/Ml) Confirm Administered Dose 2 mg .ROUTE .STK-MED ONE Stop: 01/10/20 20:49 - Interaction Infant Disposition, : in Room with Family Infant Interaction: Holding Infant Feeding: Breastfed ; Nursed Well Support Person: - Recovery Exam Fundal Tone: Firm Fundal Level: 2 Fingerbreadths Below Umbilicus Fundal Placement: Midline Lochia Amount: Scant Lochia Color: Rubra/Red Perineum Description: Intact, Minimal Bruising/Swelling Episiotomy/Laceration: None Bladder Status: Voiding Urinary Elimination: Indwelling Catheter - Exam General: Alert, Oriented HEENT: Pupils Equal Neck: Supple Lungs: Clear to Auscultation, Normal Respiratory Effort Cardiovascular: Regular Rate, Regular Rhythm GI/Abdominal Exam: Normal Bowel Sounds, Soft, Non-Tender, No Organomegaly, No Mass Extremities: Normal Inspection, Non-Tender, No Pedal Edema Skin: Warm, Dry, Intact Wound/Incisions: Healing Well Neurological: No New Focal Deficit Psy/Mental Status: Alert, Normal Affect, Normal Mood - Problem List & Annotations (1) Delivery by section of full-term infant SNOMED Code(s): 802303212, [id number] Code(s): O82 - ENCOUNTER FOR DELIVERY WITHOUT INDICATION Status: Acute Current Visit: No - Problem List Review Problem List Initiated/Reviewed/Updated: Yes - My Orders Last 24 Hours: My Active Orders 01/11/20 09:00 Docusate Sodium [Colace] 100 mg PO BID 01/12/20 03:00 Ibuprofen [Motrin] 800 mg PO Q8H PRN - Assessment Assessment:: POD#2 after repeat low transverse , stable, would like to go home today. - Plan Plan:: Discharge precautions reviewed. Dismiss to home today.
[2020-01-12 12:06] VITALS: BP 98/58; PULSE 69
== END 2020-01-12 13:30 | disposition home or self-care (01) | DRG 540 ==
LOC: MW.OBCHECK 16:16 → MW.OB 16:17 → MW.OBCHECK 17:22 → OBSVTOIN 20:28 → MW.OB 01-11 01:57
PROVIDERS: ADMIT Obstetrics & Gynecology; ATTEND Obstetrics & Gynecology
PROC: 10D00Z1 Extraction of Products of Conception, Low, Open Approach (ICD-10-PCS; principal; 2020-01-10)
PROC: 0UB70ZZ Excision of Bilateral Fallopian Tubes, Open Approach (ICD-10-PCS; 2020-01-10)
DX: O34.211 Maternal care for low transverse scar from previous cesarean delivery (principal); Z3A.38 38 weeks gestation of pregnancy; Z37.0 Single live birth; N83.8 Other noninflammatory disorders of ovary, fallopian tube and broad ligament; O34.83 Maternal care for other abnormalities of pelvic organs, third trimester; Z79.899 Other long term (current) drug therapy
CPT/HCPCS: 36415; 51702; 59025; 82803; 85014; 85018; 85027; 86592; 86593; 86850; 86900; 86901; A9270-GY; J0690; J1200; J1885; J2270; J2300; J2370; J2405; J2590; J7120

== ENCOUNTER 2021-11-11 06:17 | Inpatient (IN) | payer BC ==
[2021-11-11] MEDS ORDERED: Lactated Ringers 1,000 ML IV ONE (06:55)
[2021-11-11] MEDS ORDERED: fentaNYL 100 MCG/2 ML SDV ONE (07:28)
[2021-11-11] MEDS ORDERED: Sodium Chloride 0.9% 20 ML SDV IV PRN ×2 (07:33→07:50)
[2021-11-11] MEDS ORDERED: Sodium Chloride 0.9% 10 ML Syringe FLUSH PRN ×2 (07:33→07:50)
[2021-11-11] MEDS ORDERED: Citric Acid/Sodium Citrate Solution 30 ML Cup PO ONE ×2 (07:33→07:50)
[2021-11-11] MEDS ORDERED: Sodium Chloride 0.9% 2.5 ML Syringe FLUSH PRN ×2 (07:33→07:50)
[2021-11-11] MEDS ORDERED: ceFAZolin 2 GM in Premix Bag 1 BAG IV ONE (07:33)
--- NOTE | 2021-11-11 07:41 | PCM.PREANE ---
Preanesthetic Assessment - Procedure Proposed Procedure: Spinal vs GETA for - Anesthesia/Transfusion/Family Hx Anesthesia History: Prior Anesthesia Reaction (PONV Itching) Family History of Anesthesia Reaction: No Transfusion History: No Prior Transfusion(s) - Review of Systems General: No Symptoms Pulmonary: No Symptoms Cardiovascular: No Symptoms Gastrointestinal: Other (Gerd) Neurological: Other (Anxiety) Other: Reports: None - Physical Assessment NPO Status Date: 11/10/21 NPO Status Time: 00:00 Height: 1.65 m Weight: 85.593 kg ASA Class: 2 Mental Status: Alert & Oriented x3 Airway Class: Mallampati = 2 Dentition: Reports: Normal Dentition Thyro-Mental Finger Breadths: 3 Mouth Opening Finger Breadths: 3 ROM/Head Extension: Full Lungs: Clear to Auscultation, Normal Respiratory Effort Cardiovascular: Regular Rate, Regular Rhythm - Allergies Allergies/Adverse Reactions: Allergies Allergy/AdvReac Type Severity Reaction Status Date / Time No Known Allergies Allergy Verified 11/11/21 07:33 - Blood Blood Available: Yes Product(s) Available: PRBC (Type and Screen) - Anesthesia Plan Pre-Op Medication Ordered: None - Acknowledgements Anesthesia Type Planned: General Anesthesia, Spinal Pt an Appropriate Candidate for the Planned Anesthesia: Yes Alternatives and Risks of Anesthesia Discussed w Pt/Guardian: Yes Pt/Guardian Understands and Agrees with Anesthesia Plan: Yes Additional Comments: Pt discussed concerns with prior anesthetics and plan created with patient to include TAP Block. All questions answered and patient states she agrees with plan. PreAnesthesia Questionnaire [employer] History: Reports: - Past Surgical History HEENT Surgical History: Reports: Oral Surgery - HOME MEDS Home Medications: Home Meds Calcium Carbonate [Tums] 1 tab.chew CHEW ASDIRECTED PRN 01/07/20 [History] Pnv No.95/Ferrous Fum/Folic AC [ Vitamin Tablet] 1 tab PO DAILY 01/07/20 [History] Acetaminophen/oxyCODONE [Percocet 325-5 MG] 1 tab PO Q4H PRN #20 tablet 01/12/20 [Rx] Ibuprofen [Motrin] 800 mg PO Q8H PRN #30 tablet 01/12/20 [Rx] - CURRENT (IN HOUSE) MEDS Current Meds: Current Medications Lactated Ringer's (Ringers, Lactated) 1,000 mls @ 999 mls/hr IV .BOLUS ONE Stop: 11/11/21 07:55 Lactated Ringer's (Ringers, Lactated) 1,000 mls @ 150 mls/hr IV ASDIRECTED [facility] Discontinued Medications Fentanyl (Fentanyl 100 Mcg/2 Ml Sdv) Confirm Administered Dose 100 mcg .ROUTE .STK-MED ONE Stop: 11/11/21 07:29
[2021-11-11] MEDS ORDERED: Famotidine 20 MG/2 ML SDV ONE (07:42)
[2021-11-11] MEDS ORDERED: Ondansetron 4 MG/2 ML SDV ONE (07:42)
[2021-11-11] MEDS ORDERED: Dexamethasone 4 MG/ML SDV ONE (07:42)
[2021-11-11] MEDS ORDERED: Oxytocin/0.9 % Sodium Chloride 30 UNIT/500 ML BAG IV SCH ×2 (07:45→08:00)
[2021-11-11] MEDS ORDERED: Lactated Ringers 1,000 ML IV SCH ×3 (07:45→11:00)
[2021-11-11] MEDS ORDERED: Misoprostol 200 MCG Tab RECTAL PRN ×2 (07:50→10:46)
[2021-11-11] MEDS ORDERED: Oxytocin 10 Units/1 ML SDV ONE (09:29)
[2021-11-11] MEDS ORDERED: Glycopyrrolate 0.2 MG/ML SDV ONE (09:29)
[2021-11-11] MEDS ORDERED: Ketorolac 30 MG/ML SDV ONE (09:29)
[2021-11-11] MEDS ORDERED: ePHEDrine 50 MG/ML SDV ONE (09:29)
[2021-11-11] MEDS ORDERED: Water For Injection, Sterile 60 ML ONE (09:30)
--- NOTE | 2021-11-11 09:37 | PCM.POSTAN ---
POST ANESTHESIA ASSESSMENT - MENTAL STATUS Mental Status: Alert, Oriented - RESPIRATORY Respiratory Status: Respiratory Rate WNL, Airway Patent, O2 Saturation Stable - CARDIOVASCULAR CV Status: Pulse Rate WNL, Blood Pressure Stable - GASTROINTESTINAL GI Status: No Symptoms - POST OP HYDRATION Hydration Status: Adequate & Stable
--- NOTE | 2021-11-11 09:39 | PCM.SN.2 ---
- Free Text/Narrative Note: TAP block performed bilaterally under ultrasound guidance. 60 ml of 0.25% Ropivicaine infused under ultrasound guidance with negetive aspiration every 5 ml or needle placement change and easy injection of local anesthesia.
[2021-11-11] MEDS ORDERED: Ropivacaine 0.5% 5 MG/ML 30 ML SDV ONE (10:39)
[2021-11-11] MEDS ORDERED: Oxytocin 10 Units/1 ML SDV IM PRN (10:46)
[2021-11-11] MEDS ORDERED: Ibuprofen 800 MG Tab PO PRN (10:46)
[2021-11-11] MEDS ORDERED: diphenhydrAMINE 50 MG/ML SDV IVPUSH PRN (10:46)
[2021-11-11] MEDS ORDERED: Bisacodyl 10 MG Supp RECTAL PRN (10:46)
[2021-11-11] MEDS ORDERED: Ondansetron 4 MG/2 ML SDV IVPUSH PRN (10:46)
[2021-11-11] MEDS ORDERED: Tranexamic Acid 1,000 MG in Sodium Chloride 0.9% 100 ML IV PRN (10:46)
[2021-11-11] MEDS ORDERED: Methylergonovine 0.2 MG/1 ML Amp IM PRN (10:46)
[2021-11-11] MEDS ORDERED: Acetaminophen/oxyCODONE 325-5 MG Tab PO PRN (10:46)
[2021-11-11] MEDS ORDERED: Lanolin 100% Cream 7 GM Tube TOP PRN (10:46)
--- NOTE | 2021-11-11 10:54 | PCM.OPNOTE ---
- General Post-Op/Procedure Note Date of Surgery/Procedure: 11/11/21 Operative Procedure(s): Repeat LTCS Findings: Viable male APGARs 9, 9 weight 3310 gm. Delivery intact placenta with 3V Cord Pre Op Diagnosis: 39 week IUP. Previous c section x 2--desires repeat Post-Op Diagnosis: Same Anesthesia Technique: Spinal Primary Surgeon: Vanessa Santiago Fluid Replacement, Intraop: 2,000 EBL in mLs: 650 Complications: none known Condition: Stable Free Text/Narrative:: Dictation [id number] Intake & Output 11/10/21 11/11/21 11/11/21 22:59 06:59 14:59 Intake Total 1000 Output Total 400 Balance 600
[2021-11-11] MEDS ORDERED: Ketorolac 30 MG/ML SDV IVPUSH SCH (11:00)
[2021-11-11] MEDS: Ketorolac 30 MG/ML SDV IVPUSH SCH ×2 (15:07→21:10)
--- NOTE | 2021-11-11 17:03 | OR ---
SURGEON: Vanessa Santiago M.D. DATE OF PROCEDURE: 11/11/2021 PREOPERATIVE DIAGNOSES: 1. A 39-week intrauterine . 2. Previous section x2, desires repeat. POSTOPERATIVE DIAGNOSES: 1. A 39-week intrauterine . 2. Previous section x2, desires repeat. PROCEDURE: Repeat low-transverse section. ANESTHESIA: Spinal. ESTIMATED BLOOD LOSS: 650 mL. FLUIDS: 2000 mL of crystalloid. COMPLICATIONS: None known. FINDINGS: Viable male. score 9 at 1 minute and 9 at 5 minutes. Weight of 3310 g. Delivery, intact placenta, 3-vessel cord. DISPOSITION: Infant to nursery, mom to PACU in stable condition. PROCEDURE DETAILS: Caro is a 36-year-old female who presents today for scheduled repeat delivery. Risks of procedure had been discussed. Proper consent was obtained. The patient was taken to the operating room where she underwent spinal anesthetic, was placed in the dorsal supine position with leftward tilt. SCDs to lower extremities. Walker to gravity. She was prepped and draped in usual sterile fashion. Anesthesia was tested and found to be adequate. Previous Pfannenstiel scar was now excised. Subcutaneous tissue was incised down to the level of rectus fascia which was incised in midline, lateralized on either side sharply and bluntly. Superior aspect of the fascia was tented upward, dissected sharply and bluntly away from underlying muscle. In similar aspect, this was performed at the inferior aspect of the fascia. Rectus muscles were now in midline sharply and bluntly. Peritoneum was entered sharply. The rectus muscle and peritoneum were now lateralized bluntly. Uterine position and position palpated. Self-retaining retractor was gently placed. Uterovesical reflection was visualized. Bladder flap was created sharply and bluntly. Bladder was mobilized away from lower uterine segment. Low-transverse hysterotomy was now performed and uterine cavity entered with the blunt end of the scalpel. Amniotomy was performed. Large amount of clear fluid was returned. The hysterotomy was lateralized bluntly. The 's head was flexed, delivered from the pelvis. Fundal pressure was applied. The 's head was delivered followed by anterior shoulder and posterior shoulder and remainder of the body without difficulty. The 's oropharynx and nares were bulb suctioned. Infant was crying and vigorous. After delayed cord was clamped x2 and cut, infant was handed off to attending nursery staff. Cord arterial, cord venous, cord blood sampling was obtained. The placenta was now delivered. Uterine cavity was cleared of all clot and debris. Hysterotomy was repaired using 0 Vicryl in continuous running locked fashion followed by a re-imbricating layer. Area of oozing along the right lateral side was replicated with a [id number] suture. Hemostasis thereafter evident. Uterus remained firm. Posterior aspect of the uterus inspected. No defects or hematomas found to be forming. Region was well- irrigated and suction dried. Uterus was returned to the abdominal cavity. Colonic gutters were cleared of all clot and debris, well irrigated, suction dried. Hysterotomy was once again inspected and found to be hemostatic. Self-retaining retractor was now removed. Bladder blade was placed. Hysterotomy was once again inspected, found to be hemostatic. Rectus muscle and peritoneum were now reapproximated using 0 Vicryl in inverted mattress suture technique. Anterior aspect of the muscle, posterior aspect of the fascia was closely inspected. Any areas of oozing were cauterized. The rectus fascia was reapproximated using 0 Vicryl in continuous running fashion beginning laterally on each side and meeting in the midline. Subcutaneous tissue was now well-irrigated and suction dried. Any areas of oozing were cauterized. Skin was reapproximated using 3-0 Vicryl on a Trevor needle in subcuticular fashion followed by Dermabond. The sponge, instrument, needle count were correct x2. The patient tolerated the procedure well overall. She will go to PACU in stable condition, infant to nursery. CAESAR / WANDA /[id number]
[2021-11-11] MEDS: Docusate Sodium 100 MG Cap PO SCH (21:10)
[2021-11-12] MEDS: Ketorolac 30 MG/ML SDV IVPUSH SCH ×2 (03:44→08:56)
[2021-11-12] MEDS: Docusate Sodium 100 MG Cap PO SCH ×2 (08:56→23:30)
--- NOTE | 2021-11-12 09:40 | PCM.PNPP ---
- General Info Date of Service: 11/12/21 Functional Status: Reports: Pain Controlled, Tolerating Diet, Ambulating, Urinating - Review of Systems General: Reports: Fatigue. Denies: Fever, Weakness Pulmonary: Denies: Shortness of Breath Cardiovascular: Denies: Chest Pain, Palpitations, Lightheadedness Gastrointestinal: Denies: Abdominal Pain, Nausea, Vomiting Genitourinary: Denies: Flank Pain Musculoskeletal: Reports: No Symptoms Skin: Reports: No Symptoms Neurological: Reports: No Symptoms Psychiatric: Reports: No Symptoms - General Info Date of Service: 11/12/21 - Patient Data Vital Signs - Most Recent: Last Vital Signs Temp 36.2 C 11/12/21 08:00 Pulse 69 11/12/21 08:00 Resp 18 11/12/21 08:00 BP 99/62 11/12/21 08:00 Pulse Ox 100 11/12/21 08:00 Weight - Most Recent: 85.593 kg I&O - Last 24 Hours: Intake & Output 11/11/21 11/12/21 11/12/21 22:59 06:59 14:59 Intake Total 1550 Output Total 1100 550 800 Balance 450 -550 -800 Lab Results - Last 24 Hours: Laboratory Results - last 24 hr 11/11/21 11/12/21 Range/Units 08:30 05:09 Hgb 8.6 L (12.0-16.0) g/dL Hct 25.3 L (36.0-46.0) % Cord ABG pH 7.244 (7.18-7.38) Cord ABG Base Excess -3.0 (-10--2) Cord VBG pH 7.316 (7.25-7.45) Cord VBG Base Excess -3.2 (-10--2) Med Orders - Current: Current Medications Bisacodyl (Bisacodyl 10 Mg Supp) 10 mg RECTAL ONETIME PRN PRN Reason: Constipation Diphenhydramine HCl (Diphenhydramine 50 Mg/Ml Sdv) 25 mg IVPUSH Q6H PRN PRN Reason: Itching or Nausea Docusate Sodium (Docusate Sodium 100 Mg Cap) 100 mg PO BID [facility] Last Admin: 11/12/21 08:56 Dose: 100 mg Documented by: Emollient Ointment (Lanolin 100% Cream 7 Gm Tube) 0 gm TOP ASDIRECTED PRN PRN Reason: Sore Nipples Lactated Ringer's (Ringers, Lactated) 1,000 mls @ 150 mls/hr IV ASDIRECTED [facility] Lactated Ringer's (Ringers, Lactated) 1,000 mls @ 500 mls/hr IV BOLUS [facility] Last Admin: 11/11/21 07:25 Dose: 500 mls/hr Documented by: Oxytocin/Sodium Chloride (Oxytocin 30 Unit In Ns 0.9% 500 Ml Premix) 30 unit in 500 mls @ 250 mls/hr IV TITRATE [facility] Oxytocin/Sodium Chloride (Oxytocin 30 Unit In Ns 0.9% 500 Ml Premix) 30 unit in 500 mls @ 250 mls/hr IV TITRATE [facility] Lactated Ringer's (Ringers, Lactated) 1,000 mls @ 125 mls/hr IV ASDIRECTED [facility] Tranexamic Acid 1,000 mg/ (Sodium Chloride) 110 mls @ 660 mls/hr IV ONETIME PRN PRN Reason: Bleeding Ibuprofen (Ibuprofen 800 Mg Tab) 800 mg PO Q8H PRN PRN Reason: Cramping Methylergonovine Maleate (Methylergonovine 0.2 Mg/1 Ml Amp) 0.2 mg IM ONETIME PRN PRN Reason: Excessive Vaginal Bleeding Misoprostol (Misoprostol 200 Mcg Tab) 1,000 mcg RECTAL ONETIME PRN PRN Reason: excessive vaginal bleeding Misoprostol (Misoprostol 200 Mcg Tab) 1,000 mcg RECTAL ONETIME PRN PRN Reason: excessive bleeding Ondansetron HCl (Ondansetron 4 Mg/2 Ml Sdv) 4 mg IVPUSH Q4H PRN PRN Reason: Nausea/Vomiting Oxycodone/Acetaminophen (Acetaminophen/Oxycodone 325-5 Mg Tab) 1 tab PO Q4H PRN PRN Reason: Pain (severe 7-10) Oxycodone/Acetaminophen (Acetaminophen/Oxycodone 325-5 Mg Tab) 2 tab PO Q4H PRN PRN Reason: Pain (severe 7-10) Oxytocin (Oxytocin 10 Units/1 Ml Sdv) 10 unit IM ASDIRECTED PRN PRN Reason: Excessive Vaginal Bleeding Sodium Chloride (Sodium Chloride 0.9% 10 Ml Syringe) 10 ml FLUSH ASDIRECTED PRN PRN Reason: Keep Vein Open Sodium Chloride (Sodium Chloride 0.9% 2.5 Ml Syringe) 2.5 ml FLUSH ASDIRECTED PRN PRN Reason: Keep Vein Open Sodium Chloride (Sodium Chloride 0.9% 20 Ml Sdv) 10 ml IV ASDIRECTED PRN PRN Reason: IV Use Sodium Chloride (Sodium Chloride 0.9% 10 Ml Syringe) 10 ml FLUSH ASDIRECTED PRN PRN Reason: Keep Vein Open Sodium Chloride (Sodium Chloride 0.9% 2.5 Ml Syringe) 2.5 ml FLUSH ASDIRECTED PRN PRN Reason: Keep Vein Open Sodium Chloride (Sodium Chloride 0.9% 20 Ml Sdv) 10 ml IV ASDIRECTED PRN PRN Reason: IV Use Discontinued Medications Citric Acid/Sodium Citrate (Citric Acid/Sodium Citrate Solution 30 Ml Cup) 30 ml PO ONETIME ONE Stop: 11/11/21 07:34 Last Admin: 11/11/21 12:23 Dose: Not Given Documented by: Citric Acid/Sodium Citrate (Citric Acid/Sodium Citrate Solution 30 Ml Cup) 30 ml PO ONETIME ONE Stop: 11/11/21 07:51 Last Admin: 11/11/21 12:23 Dose: Not Given Documented by: Dexamethasone (Dexamethasone 4 Mg/Ml Sdv) Confirm Administered Dose 8 mg .ROUTE .STK-MED ONE Stop: 11/11/21 07:43 Last Admin: 11/11/21 12:23 Dose: Not Given Documented by: Ephedrine Sulfate (Ephedrine 50 Mg/Ml Sdv) Confirm Administered Dose 50 mg .ROUTE .STK-MED ONE Stop: 11/11/21 09:30 Famotidine (Famotidine 20 Mg/2 Ml Sdv) Confirm Administered Dose 20 mg .ROUTE .STK-MED ONE Stop: 11/11/21 07:43 Last Admin: 11/11/21 12:23 Dose: Not Given Documented by: Fentanyl (Fentanyl 100 Mcg/2 Ml Sdv) Confirm Administered Dose 100 mcg .ROUTE .STK-MED ONE Stop: 11/11/21 07:29 Glycopyrrolate (Glycopyrrolate 0.2 Mg/Ml Sdv) Confirm Administered Dose 0.4 mg .ROUTE .STK-MED ONE Stop: 11/11/21 09:30 Lactated Ringer's (Ringers, Lactated) 1,000 mls @ 999 mls/hr IV .BOLUS ONE Stop: 11/11/21 07:55 Last Admin: 11/11/21 06:55 Dose: 999 mls/hr Documented by: Cefazolin Sodium/Dextrose 2 gm (/ Premix) 50 mls @ 100 mls/hr IV ONETIME ONE Stop: 11/11/21 08:02 Last Admin: 11/11/21 12:23 Dose: Not Given Documented by: Sterile Water (Sterile Water For Injection) Confirm Administered Dose 60 mls @ as directed .ROUTE .STK-MED ONE Stop: 11/11/21 09:31 Acetaminophen (Ofirmev 1000 Mg/100 Ml) Confirm Administered Dose 100 mls @ as directed .ROUTE .STK-MED ONE Stop: 11/11/21 09:31 Cefazolin Sodium/Dextrose (Ancef) Confirm Administered Dose 50 mls @ as directed .ROUTE .STK-MED ONE Stop: 11/11/21 09:31 Ibuprofen (Ibuprofen 800 Mg Tab) 800 mg PO Q8H PRN PRN Reason: Cramping Ketorolac Tromethamine (Ketorolac 30 Mg/Ml Sdv) Confirm Administered Dose 30 mg .ROUTE .STK-MED ONE Stop: 11/11/21 09:30 Ketorolac Tromethamine (Ketorolac 30 Mg/Ml Sdv) 30 mg IVPUSH Q6H [facility] Stop: 11/12/21 11:01 Last Admin: 11/11/21 12:51 Dose: Not Given Documented by: Ketorolac Tromethamine (Ketorolac 30 Mg/Ml Sdv) 30 mg IVPUSH Q6H [facility] Stop: 11/12/21 09:01 Last Admin: 11/12/21 08:56 Dose: 30 mg Documented by: Miscellaneous Medication (Phenylephrine Hcl In 0.9% Nacl 1 Mg/10 Ml Syringe) Confirm Administered Dose 1 mg .ROUTE .STK-MED ONE Stop: 11/11/21 09:30 Ondansetron HCl (Ondansetron 4 Mg/2 Ml Sdv) Confirm Administered Dose 4 mg .ROUTE .STK-MED ONE Stop: 11/11/21 07:43 Last Admin: 11/11/21 12:23 Dose: Not Given Documented by: Oxytocin (Oxytocin 10 Units/1 Ml Sdv) Confirm Administered Dose 30 unit .ROUTE .STK-MED ONE Stop: 11/11/21 09:30 Ropivacaine (Ropivacaine 0.5% 5 Mg/Ml 30 Ml Sdv) Confirm Administered Dose 30 ml .ROUTE .STK-MED ONE Stop: 11/11/21 10:40 - Interaction Support Person: - Recovery Exam Fundal Tone: Firm Fundal Level: 2 Fingerbreadths Below Umbilicus Fundal Placement: Midline Lochia Amount: Scant Lochia Color: Rubra/Red Perineum Description: Intact, Minimal Bruising/Swelling Episiotomy/Laceration: None Bladder Status: Voiding Urinary Elimination: Voided - Exam General: Alert, Oriented Lungs: Normal Respiratory Effort, Rhonchi Cardiovascular: Regular Rate GI/Abdominal Exam: Normal Bowel Sounds, Soft, No Distention Extremities: Pedal Edema (trace). No: Svetlana's Sign Skin: Warm, Dry, Intact Wound/Incisions: Healing Well, No Drainage. No: Erythema Neurological: No New Focal Deficit Psy/Mental Status: Alert, Normal Affect, Normal Mood - Problem List & Annotations (1) Delivery by section of full-term infant SNOMED Code(s): 604938807, [id number] Code(s): O82 - ENCOUNTER FOR DELIVERY WITHOUT INDICATION Status: Acute Current Visit: No - Problem List Review Problem List Initiated/Reviewed/Updated: Yes - My Orders Last 24 Hours: My Active Orders 11/11/21 10:46 Patient Status [ADT] Routine Communication Order [RC] PER UNIT ROUTINE Communication Order [RC] PER UNIT ROUTINE Communication Order [RC] Per Unit Routine May Shower [RC] ASDIRECTED Notify Provider Intake and Out [RC] ASDIRECTED Notify Provider Vital Signs [RC] ASDIRECTED RT Incentive Spirometry [RC] Q2HWA Vital Signs [RC] PER UNIT ROUTINE Acetaminophen/oxyCODONE [Percocet 325-5 MG] 1 tab PO Q4H PRN Acetaminophen/oxyCODONE [Percocet 325-5 MG] 2 tab PO Q4H PRN Lanolin [Lansinoh HPA] See Dose Instructions TOP ASDIRECTED PRN Methylergonovine [Methergine] 0.2 mg IM ONETIME PRN Ondansetron [Zofran] 4 mg IVPUSH Q4H PRN Oxytocin [Pitocin] 10 unit IM ASDIRECTED PRN Tranexamic Acid [Cyklokapron] 1,000 mg Sodium Chloride 0.9% [Normal Saline] 100 ml IV ONETIME bisacodyL [Dulcolax] 10 mg RECTAL ONETIME PRN diphenhydrAMINE [Benadryl] 25 mg IVPUSH Q6H PRN miSOPROStoL [Cytotec] 1,000 mcg RECTAL ONETIME PRN Abdominal Binder [OM.PC] Routine Assess Lochia [WOMSER] Per Unit Routine Assess Uterine Involution [WOMSER] Per Unit Routine Breast Pump [WOMSER] Per Unit Routine Heat Therapy [OM.PC] Routine Ice Therapy [OM.PC] Routine Peripheral IV Discontinue [OM.PC] Routine Sequential Compression Device [OM.PC] Per Unit Routine 11/11/21 Lunch Regular Diet [DIET] Lactated Ringers [Ringers, Lactated] 1,000 ml IV ASDIRECTED 11/11/21 21:00 Docusate Sodium [Colace] 100 mg PO BID 11/12/21 15:00 Ibuprofen [Motrin] 800 mg PO Q8H PRN - Assessment Assessment:: POD 1 status post repeat c section - Plan Plan:: Continue postoperative cares, VS are stable.
[2021-11-12] MEDS: Acetaminophen/oxyCODONE 325-5 MG Tab PO PRN ×2 (13:06→23:33)
[2021-11-12] MEDS: Ibuprofen 800 MG Tab PO PRN (17:53)
[2021-11-13] MEDS: Ibuprofen 800 MG Tab PO PRN ×2 (04:26→14:23)
[2021-11-13] MEDS: Acetaminophen/oxyCODONE 325-5 MG Tab PO PRN ×2 (09:04→18:12)
[2021-11-13] MEDS: Docusate Sodium 100 MG Cap PO SCH ×2 (09:04→20:56)
--- NOTE | 2021-11-13 10:09 | PCM.PNPP ---
- General Info Date of Service: 11/13/21 Functional Status: Reports: Pain Controlled, Tolerating Diet, Ambulating, Urinating - Review of Systems General: Reports: Fatigue. Denies: Fever, Weakness Pulmonary: Denies: Shortness of Breath Cardiovascular: Denies: Chest Pain, Palpitations, Lightheadedness Gastrointestinal: Denies: Abdominal Pain, Nausea, Vomiting Genitourinary: Denies: Flank Pain Skin: Reports: No Symptoms Neurological: Reports: No Symptoms Psychiatric: Reports: No Symptoms - General Info Date of Service: 11/13/21 - Patient Data Vital Signs - Most Recent: Last Vital Signs Temp 35.9 C L 11/13/21 07:54 Pulse 81 11/13/21 07:54 Resp 18 11/13/21 07:54 BP 102/66 11/13/21 07:54 Pulse Ox 97 11/13/21 07:54 Weight - Most Recent: 85.593 kg Med Orders - Current: Current Medications Bisacodyl (Bisacodyl 10 Mg Supp) 10 mg RECTAL ONETIME PRN PRN Reason: Constipation Diphenhydramine HCl (Diphenhydramine 50 Mg/Ml Sdv) 25 mg IVPUSH Q6H PRN PRN Reason: Itching or Nausea Docusate Sodium (Docusate Sodium 100 Mg Cap) 100 mg PO BID [facility] Last Admin: 11/13/21 09:04 Dose: 100 mg Documented by: Emollient Ointment (Lanolin 100% Cream 7 Gm Tube) 0 gm TOP ASDIRECTED PRN PRN Reason: Sore Nipples Lactated Ringer's (Ringers, Lactated) 1,000 mls @ 150 mls/hr IV ASDIRECTED [facility] Lactated Ringer's (Ringers, Lactated) 1,000 mls @ 500 mls/hr IV BOLUS [facility] Last Admin: 11/11/21 07:25 Dose: 500 mls/hr Documented by: Oxytocin/Sodium Chloride (Oxytocin 30 Unit In Ns 0.9% 500 Ml Premix) 30 unit in 500 mls @ 250 mls/hr IV TITRATE [facility] Oxytocin/Sodium Chloride (Oxytocin 30 Unit In Ns 0.9% 500 Ml Premix) 30 unit in 500 mls @ 250 mls/hr IV TITRATE [facility] Lactated Ringer's (Ringers, Lactated) 1,000 mls @ 125 mls/hr IV ASDIRECTED [facility] Tranexamic Acid 1,000 mg/ (Sodium Chloride) 110 mls @ 660 mls/hr IV ONETIME PRN PRN Reason: Bleeding Ibuprofen (Ibuprofen 800 Mg Tab) 800 mg PO Q8H PRN PRN Reason: Cramping Last Admin: 11/13/21 04:26 Dose: 800 mg Documented by: Methylergonovine Maleate (Methylergonovine 0.2 Mg/1 Ml Amp) 0.2 mg IM ONETIME PRN PRN Reason: Excessive Vaginal Bleeding Misoprostol (Misoprostol 200 Mcg Tab) 1,000 mcg RECTAL ONETIME PRN PRN Reason: excessive vaginal bleeding Misoprostol (Misoprostol 200 Mcg Tab) 1,000 mcg RECTAL ONETIME PRN PRN Reason: excessive bleeding Ondansetron HCl (Ondansetron 4 Mg/2 Ml Sdv) 4 mg IVPUSH Q4H PRN PRN Reason: Nausea/Vomiting Oxycodone/Acetaminophen (Acetaminophen/Oxycodone 325-5 Mg Tab) 1 tab PO Q4H PRN PRN Reason: Pain (severe 7-10) Last Admin: 11/13/21 09:04 Dose: 1 tab Documented by: Oxycodone/Acetaminophen (Acetaminophen/Oxycodone 325-5 Mg Tab) 2 tab PO Q4H PRN PRN Reason: Pain (severe 7-10) Oxytocin (Oxytocin 10 Units/1 Ml Sdv) 10 unit IM ASDIRECTED PRN PRN Reason: Excessive Vaginal Bleeding Sodium Chloride (Sodium Chloride 0.9% 10 Ml Syringe) 10 ml FLUSH ASDIRECTED PRN PRN Reason: Keep Vein Open Sodium Chloride (Sodium Chloride 0.9% 2.5 Ml Syringe) 2.5 ml FLUSH ASDIRECTED PRN PRN Reason: Keep Vein Open Sodium Chloride (Sodium Chloride 0.9% 20 Ml Sdv) 10 ml IV ASDIRECTED PRN PRN Reason: IV Use Sodium Chloride (Sodium Chloride 0.9% 10 Ml Syringe) 10 ml FLUSH ASDIRECTED PRN PRN Reason: Keep Vein Open Sodium Chloride (Sodium Chloride 0.9% 2.5 Ml Syringe) 2.5 ml FLUSH ASDIRECTED PRN PRN Reason: Keep Vein Open Sodium Chloride (Sodium Chloride 0.9% 20 Ml Sdv) 10 ml IV ASDIRECTED PRN PRN Reason: IV Use Discontinued Medications Citric Acid/Sodium Citrate (Citric Acid/Sodium Citrate Solution 30 Ml Cup) 30 ml PO ONETIME ONE Stop: 11/11/21 07:34 Last Admin: 11/11/21 12:23 Dose: Not Given Documented by: Citric Acid/Sodium Citrate (Citric Acid/Sodium Citrate Solution 30 Ml Cup) 30 ml PO ONETIME ONE Stop: 11/11/21 07:51 Last Admin: 11/11/21 12:23 Dose: Not Given Documented by: Dexamethasone (Dexamethasone 4 Mg/Ml Sdv) Confirm Administered Dose 8 mg .ROUTE .STK-MED ONE Stop: 11/11/21 07:43 Last Admin: 11/11/21 12:23 Dose: Not Given Documented by: Ephedrine Sulfate (Ephedrine 50 Mg/Ml Sdv) Confirm Administered Dose 50 mg .ROUTE .STK-MED ONE Stop: 11/11/21 09:30 Famotidine (Famotidine 20 Mg/2 Ml Sdv) Confirm Administered Dose 20 mg .ROUTE .STK-MED ONE Stop: 11/11/21 07:43 Last Admin: 11/11/21 12:23 Dose: Not Given Documented by: Fentanyl (Fentanyl 100 Mcg/2 Ml Sdv) Confirm Administered Dose 100 mcg .ROUTE .STK-MED ONE Stop: 11/11/21 07:29 Glycopyrrolate (Glycopyrrolate 0.2 Mg/Ml Sdv) Confirm Administered Dose 0.4 mg .ROUTE .STK-MED ONE Stop: 11/11/21 09:30 Lactated Ringer's (Ringers, Lactated) 1,000 mls @ 999 mls/hr IV .BOLUS ONE Stop: 11/11/21 07:55 Last Admin: 11/11/21 06:55 Dose: 999 mls/hr Documented by: Cefazolin Sodium/Dextrose 2 gm (/ Premix) 50 mls @ 100 mls/hr IV ONETIME ONE Stop: 11/11/21 08:02 Last Admin: 11/11/21 12:23 Dose: Not Given Documented by: Sterile Water (Sterile Water For Injection) Confirm Administered Dose 60 mls @ as directed .ROUTE .STK-MED ONE Stop: 11/11/21 09:31 Acetaminophen (Ofirmev 1000 Mg/100 Ml) Confirm Administered Dose 100 mls @ as directed .ROUTE .STK-MED ONE Stop: 11/11/21 09:31 Cefazolin Sodium/Dextrose (Ancef) Confirm Administered Dose 50 mls @ as directed .ROUTE .STK-MED ONE Stop: 11/11/21 09:31 Ibuprofen (Ibuprofen 800 Mg Tab) 800 mg PO Q8H PRN PRN Reason: Cramping Ketorolac Tromethamine (Ketorolac 30 Mg/Ml Sdv) Confirm Administered Dose 30 mg .ROUTE .STK-MED ONE Stop: 11/11/21 09:30 Ketorolac Tromethamine (Ketorolac 30 Mg/Ml Sdv) 30 mg IVPUSH Q6H [facility] Stop: 11/12/21 11:01 Last Admin: 11/11/21 12:51 Dose: Not Given Documented by: Ketorolac Tromethamine (Ketorolac 30 Mg/Ml Sdv) 30 mg IVPUSH Q6H [facility] Stop: 11/12/21 09:01 Last Admin: 11/12/21 08:56 Dose: 30 mg Documented by: Miscellaneous Medication (Phenylephrine Hcl In 0.9% Nacl 1 Mg/10 Ml Syringe) Confirm Administered Dose 1 mg .ROUTE .STK-MED ONE Stop: 11/11/21 09:30 Ondansetron HCl (Ondansetron 4 Mg/2 Ml Sdv) Confirm Administered Dose 4 mg .ROUTE .STK-MED ONE Stop: 11/11/21 07:43 Last Admin: 11/11/21 12:23 Dose: Not Given Documented by: Oxytocin (Oxytocin 10 Units/1 Ml Sdv) Confirm Administered Dose 30 unit .ROUTE .STK-MED ONE Stop: 11/11/21 09:30 Ropivacaine (Ropivacaine 0.5% 5 Mg/Ml 30 Ml Sdv) Confirm Administered Dose 30 ml .ROUTE .STK-MED ONE Stop: 11/11/21 10:40 - Infant Interaction Support Person: - Recovery Exam Fundal Tone: Firm Fundal Level: 2 Fingerbreadths Below Umbilicus Fundal Placement: Midline Lochia Amount: Scant Lochia Color: Rubra/Red Perineum Description: Edematous Episiotomy/Laceration: None Bladder Status: Voiding Urinary Elimination: Voided - Exam General: Alert, Oriented Lungs: Normal Respiratory Effort Cardiovascular: Regular Rate, Regular Rhythm GI/Abdominal Exam: Soft, Non-Tender, No Distention. No: Guarding, Rigid Extremities: Pedal Edema (trace). No: Svetlana's Sign Skin: Warm, Dry, Intact Wound/Incisions: Healing Well, No Drainage. No: Erythema Neurological: No New Focal Deficit Psy/Mental Status: Alert, Normal Affect, Normal Mood - Problem List & Annotations (1) Delivery by section of full-term infant SNOMED Code(s): 921874430, [id number] Code(s): O82 - ENCOUNTER FOR DELIVERY WITHOUT INDICATION Status: Acute Current Visit: No - Problem List Review Problem List Initiated/Reviewed/Updated: Yes - My Orders Last 24 Hours: My Active Orders 11/12/21 15:00 Ibuprofen [Motrin] 800 mg PO Q8H PRN 11/13/21 10:06 Ready for Discharge [RC] PER UNIT ROUTINE - Assessment Assessment:: POD 2 status post repeat c section - Plan Plan:: Doing well overall, would like to go home today. Discharge instructions reviewed. Follow up at [facility] 2 and 6 weeks. Infection and bleeding warnings reviewed.
[2021-11-14] MEDS: Ibuprofen 800 MG Tab PO PRN ×2 (01:07→09:21)
[2021-11-14] MEDS: Docusate Sodium 100 MG Cap PO SCH (09:21)
--- NOTE | 2021-11-14 09:35 | PCM.PNPP ---
- General Info Date of Service: 11/14/21 Functional Status: Reports: Pain Controlled, Tolerating Diet, Ambulating, Urinating - Review of Systems General: Reports: No Symptoms HEENT: Reports: No Symptoms Pulmonary: Reports: No Symptoms Cardiovascular: Reports: No Symptoms Gastrointestinal: Reports: No Symptoms Genitourinary: Reports: No Symptoms Musculoskeletal: Reports: No Symptoms Skin: Reports: No Symptoms Neurological: Reports: No Symptoms Psychiatric: Reports: No Symptoms - General Info Date of Service: 11/14/21 - Patient Data Vital Signs - Most Recent: Last Vital Signs Temp 36.4 C 11/14/21 04:30 Pulse 74 11/14/21 04:30 Resp 16 11/14/21 04:30 BP 102/61 11/14/21 04:30 Pulse Ox 96 11/14/21 04:30 Weight - Most Recent: 85.593 kg Med Orders - Current: Current Medications Bisacodyl (Bisacodyl 10 Mg Supp) 10 mg RECTAL ONETIME PRN PRN Reason: Constipation Diphenhydramine HCl (Diphenhydramine 50 Mg/Ml Sdv) 25 mg IVPUSH Q6H PRN PRN Reason: Itching or Nausea Docusate Sodium (Docusate Sodium 100 Mg Cap) 100 mg PO BID [facility] Last Admin: 11/14/21 09:21 Dose: 100 mg Documented by: Emollient Ointment (Lanolin 100% Cream 7 Gm Tube) 0 gm TOP ASDIRECTED PRN PRN Reason: Sore Nipples Lactated Ringer's (Ringers, Lactated) 1,000 mls @ 150 mls/hr IV ASDIRECTED [facility] Lactated Ringer's (Ringers, Lactated) 1,000 mls @ 500 mls/hr IV BOLUS [facility] Last Admin: 11/11/21 07:25 Dose: 500 mls/hr Documented by: Oxytocin/Sodium Chloride (Oxytocin 30 Unit In Ns 0.9% 500 Ml Premix) 30 unit in 500 mls @ 250 mls/hr IV TITRATE [facility] Oxytocin/Sodium Chloride (Oxytocin 30 Unit In Ns 0.9% 500 Ml Premix) 30 unit in 500 mls @ 250 mls/hr IV TITRATE [facility] Lactated Ringer's (Ringers, Lactated) 1,000 mls @ 125 mls/hr IV ASDIRECTED [facility] Tranexamic Acid 1,000 mg/ (Sodium Chloride) 110 mls @ 660 mls/hr IV ONETIME PRN PRN Reason: Bleeding Ibuprofen (Ibuprofen 800 Mg Tab) 800 mg PO Q8H PRN PRN Reason: Cramping Last Admin: 11/14/21 09:21 Dose: 800 mg Documented by: Methylergonovine Maleate (Methylergonovine 0.2 Mg/1 Ml Amp) 0.2 mg IM ONETIME PRN PRN Reason: Excessive Vaginal Bleeding Misoprostol (Misoprostol 200 Mcg Tab) 1,000 mcg RECTAL ONETIME PRN PRN Reason: excessive vaginal bleeding Misoprostol (Misoprostol 200 Mcg Tab) 1,000 mcg RECTAL ONETIME PRN PRN Reason: excessive bleeding Ondansetron HCl (Ondansetron 4 Mg/2 Ml Sdv) 4 mg IVPUSH Q4H PRN PRN Reason: Nausea/Vomiting Oxycodone/Acetaminophen (Acetaminophen/Oxycodone 325-5 Mg Tab) 1 tab PO Q4H PRN PRN Reason: Pain (severe 7-10) Last Admin: 11/13/21 18:12 Dose: 1 tab Documented by: Oxycodone/Acetaminophen (Acetaminophen/Oxycodone 325-5 Mg Tab) 2 tab PO Q4H PRN PRN Reason: Pain (severe 7-10) Oxytocin (Oxytocin 10 Units/1 Ml Sdv) 10 unit IM ASDIRECTED PRN PRN Reason: Excessive Vaginal Bleeding Sodium Chloride (Sodium Chloride 0.9% 10 Ml Syringe) 10 ml FLUSH ASDIRECTED PRN PRN Reason: Keep Vein Open Sodium Chloride (Sodium Chloride 0.9% 2.5 Ml Syringe) 2.5 ml FLUSH ASDIRECTED PRN PRN Reason: Keep Vein Open Sodium Chloride (Sodium Chloride 0.9% 20 Ml Sdv) 10 ml IV ASDIRECTED PRN PRN Reason: IV Use Sodium Chloride (Sodium Chloride 0.9% 10 Ml Syringe) 10 ml FLUSH ASDIRECTED PRN PRN Reason: Keep Vein Open Sodium Chloride (Sodium Chloride 0.9% 2.5 Ml Syringe) 2.5 ml FLUSH ASDIRECTED PRN PRN Reason: Keep Vein Open Sodium Chloride (Sodium Chloride 0.9% 20 Ml Sdv) 10 ml IV ASDIRECTED PRN PRN Reason: IV Use Discontinued Medications Citric Acid/Sodium Citrate (Citric Acid/Sodium Citrate Solution 30 Ml Cup) 30 ml PO ONETIME ONE Stop: 11/11/21 07:34 Last Admin: 11/11/21 12:23 Dose: Not Given Documented by: Citric Acid/Sodium Citrate (Citric Acid/Sodium Citrate Solution 30 Ml Cup) 30 ml PO ONETIME ONE Stop: 11/11/21 07:51 Last Admin: 11/11/21 12:23 Dose: Not Given Documented by: Dexamethasone (Dexamethasone 4 Mg/Ml Sdv) Confirm Administered Dose 8 mg .ROUTE .STK-MED ONE Stop: 11/11/21 07:43 Last Admin: 11/11/21 12:23 Dose: Not Given Documented by: Ephedrine Sulfate (Ephedrine 50 Mg/Ml Sdv) Confirm Administered Dose 50 mg .ROUTE .STK-MED ONE Stop: 11/11/21 09:30 Famotidine (Famotidine 20 Mg/2 Ml Sdv) Confirm Administered Dose 20 mg .ROUTE .STK-MED ONE Stop: 11/11/21 07:43 Last Admin: 11/11/21 12:23 Dose: Not Given Documented by: Fentanyl (Fentanyl 100 Mcg/2 Ml Sdv) Confirm Administered Dose 100 mcg .ROUTE .STK-MED ONE Stop: 11/11/21 07:29 Glycopyrrolate (Glycopyrrolate 0.2 Mg/Ml Sdv) Confirm Administered Dose 0.4 mg .ROUTE .STK-MED ONE Stop: 11/11/21 09:30 Lactated Ringer's (Ringers, Lactated) 1,000 mls @ 999 mls/hr IV .BOLUS ONE Stop: 11/11/21 07:55 Last Admin: 11/11/21 06:55 Dose: 999 mls/hr Documented by: Cefazolin Sodium/Dextrose 2 gm (/ Premix) 50 mls @ 100 mls/hr IV ONETIME ONE Stop: 11/11/21 08:02 Last Admin: 11/11/21 12:23 Dose: Not Given Documented by: Sterile Water (Sterile Water For Injection) Confirm Administered Dose 60 mls @ as directed .ROUTE .STK-MED ONE Stop: 11/11/21 09:31 Acetaminophen (Ofirmev 1000 Mg/100 Ml) Confirm Administered Dose 100 mls @ as directed .ROUTE .STK-MED ONE Stop: 11/11/21 09:31 Cefazolin Sodium/Dextrose (Ancef) Confirm Administered Dose 50 mls @ as directed .ROUTE .STK-MED ONE Stop: 11/11/21 09:31 Ibuprofen (Ibuprofen 800 Mg Tab) 800 mg PO Q8H PRN PRN Reason: Cramping Ketorolac Tromethamine (Ketorolac 30 Mg/Ml Sdv) Confirm Administered Dose 30 mg .ROUTE .STK-MED ONE Stop: 11/11/21 09:30 Ketorolac Tromethamine (Ketorolac 30 Mg/Ml Sdv) 30 mg IVPUSH Q6H [facility] Stop: 11/12/21 11:01 Last Admin: 11/11/21 12:51 Dose: Not Given Documented by: Ketorolac Tromethamine (Ketorolac 30 Mg/Ml Sdv) 30 mg IVPUSH Q6H [facility] Stop: 11/12/21 09:01 Last Admin: 11/12/21 08:56 Dose: 30 mg Documented by: Miscellaneous Medication (Phenylephrine Hcl In 0.9% Nacl 1 Mg/10 Ml Syringe) Confirm Administered Dose 1 mg .ROUTE .STK-MED ONE Stop: 11/11/21 09:30 Ondansetron HCl (Ondansetron 4 Mg/2 Ml Sdv) Confirm Administered Dose 4 mg .ROUTE .STK-MED ONE Stop: 11/11/21 07:43 Last Admin: 11/11/21 12:23 Dose: Not Given Documented by: Oxytocin (Oxytocin 10 Units/1 Ml Sdv) Confirm Administered Dose 30 unit .ROUTE .STK-MED ONE Stop: 11/11/21 09:30 Ropivacaine (Ropivacaine 0.5% 5 Mg/Ml 30 Ml Sdv) Confirm Administered Dose 30 ml .ROUTE .STK-MED ONE Stop: 11/11/21 10:40 - Infant Interaction Infant Disposition, : [place] in Room with Family Infant Interaction: Holding Feeding: Breastfed ; Nursed Well Support Person: - Recovery Exam Fundal Tone: Firm Fundal Level: 3 Fingerbreadths Below Umbilicus Fundal Placement: Midline Lochia Amount: Scant Lochia Color: Rubra/Red Perineum Description: Intact, Minimal Bruising/Swelling Episiotomy/Laceration: None Bladder Status: Voiding Urinary Elimination: Voided - Exam General: Alert, Oriented Neck: Supple Lungs: Normal Respiratory Effort Cardiovascular: Regular Rate, Regular Rhythm GI/Abdominal Exam: Soft, Non-Tender Extremities: Non-Tender, No Pedal Edema Skin: Warm, Dry, Intact Wound/Incisions: Healing Well Neurological: No New Focal Deficit Psy/Mental Status: Alert, Normal Affect, Normal Mood - Problem List Review Problem List Initiated/Reviewed/Updated: Yes - Assessment Assessment:: POD 3 status post repeat c section, stable, minimal lochia, tolerating diet. Would like to go home today. - Plan Plan:: Discharge instructions reviewed. .
[2021-11-14 13:12] VITALS: BP 106/60; PULSE 80
== END 2021-11-14 11:30 | disposition home or self-care (01) | DRG 540 ==
LOC: MW.OB 06:17
PROVIDERS: ADMIT Obstetrics & Gynecology; ATTEND Obstetrics & Gynecology
PROC: 10D00Z1 Extraction of Products of Conception, Low, Open Approach (ICD-10-PCS; principal; 2021-11-11)
DX: O34.211 Maternal care for low transverse scar from previous cesarean delivery (principal); Z3A.39 39 weeks gestation of pregnancy; Z37.0 Single live birth; Z20.822 Contact with and (suspected) exposure to COVID-19
CPT/HCPCS: 01961; 36415; 59025; 82803; 85014; 85018; 85027; 86592; 86850; 86900; 86901; A9270-GY; J0131; J0690; J1100; J1885; J2370; J2590; J2795; J3010; J3490; J7120; U0002

== ENCOUNTER 2024-11-03 07:50 | Day surgery (SDC) | payer BC ==
[~2024-11-03 07:50] MED LIST: Propofol 200 MG/20 ML SDV ONE; fentaNYL 100 MCG/2 ML SDV ONE; propofoL 500 MG/50 ML 50 ML ONE
[2024-11-03] MEDS: Lactated Ringers 1,000 ML IV SCH (08:15)
[2024-11-03] MEDS: Scopalamine 1mg/3day Transdermal Patch TOP ONE (08:15)
[2024-11-03] MEDS ORDERED: Desflurane 240 ML Bottle ONE (08:45)
[2024-11-03] MEDS ORDERED: Ondansetron 4 MG/2 ML SDV ONE (08:45)
[2024-11-03] MEDS ORDERED: Dexamethasone 4 MG/ML 5 ML MDV ONE (08:45)
[2024-11-03] MEDS ORDERED: Famotidine 20 MG/2 ML SDV ONE (08:45)
[2024-11-03] MEDS ORDERED: Morphine 2 MG/ML SYRINGE IVPUSH PRN (09:02)
[2024-11-03] MEDS ORDERED: Albuterol 0.083% 2.5 MG/3 ML Neb Soln NEB PRN (09:02)
[2024-11-03] MEDS ORDERED: fentaNYL 50 MCG/ML SDV IVPUSH PRN (09:02)
[2024-11-03] MEDS ORDERED: Metoclopramide 10 MG/2 ML SDV IVPUSH PRN (09:02)
[2024-11-03] MEDS ORDERED: HYDROmorphone 1 MG/ML Syringe IVPUSH PRN (09:02)
[2024-11-03] MEDS ORDERED: Naloxone 0.4 MG/ML SDV IVPUSH PRN (09:02)
[2024-11-03] MEDS ORDERED: Phenylephrine HCl In 0.9% NaCl 1 MG/10 ML Syringe IVPUSH PRN (09:02)
[2024-11-03] MEDS ORDERED: Ondansetron 4 MG/2 ML SDV IVPUSH PRN (09:02)
[2024-11-03] MEDS ORDERED: Ketorolac 30 MG/ML SDV ONE (10:07)
[2024-11-03 12:30] VITALS: BP 101/65; PULSE 57
== END 2024-11-03 11:30 | disposition home or self-care (01) ==
LOC: MW.SDS 07:50
PROVIDERS: ATTEND Obstetrics & Gynecology
DX: N92.0 Excessive and frequent menstruation with regular cycle (principal); F32.A Depression, unspecified; F41.9 Anxiety disorder, unspecified; G47.30 Sleep apnea, unspecified; Z79.899 Other long term (current) drug therapy
CPT/HCPCS: 58563; A9270; C1729; J0131; J1100; J1885; J2704; J3010; J3490; J7120; 00952; J2405